=== PATIENT | male | born 1940 | race Hispanic/Latino ===

== ENCOUNTER 2017-04-02 14:21 | Emergency (ER) | payer MEDICARE ==
[2017-04-02 15:06] LABS: Basophils % (Auto) 0.4 % (0.0-1.8); Eosinophils % (Auto) 0.6 % (0.0-4.3); Hematocrit 46.3 % (35.5-45.6); Hemoglobin 15.2 gm/dl (11.8-15.2); Mean Corpuscular HGB Conc 33 % (32-34); Mean Corpuscular Hemoglobin 31 pg (28-32); Mean Corpuscular Volume 93 fl (84-94); Platelet Count 153 K/mm3 (140-440); Red Blood Count 4.96 M/mm3 (3.65-5.03); Red Cell Distribution Width 14.4 % (13.2-15.2); White Blood Count 7.5 K/mm3 (4.5-11.0)
[2017-04-02 15:23] LABS: BUN/Creatinine Ratio 21.42; Calcium 9.1 mg/dL (8.4-10.2); Chloride 89.3 mmol/L (98-107); Potassium 4.7 mmol/L (3.6-5.0)
[2017-04-02 16:21] LABS: Bilirubin,Urine NEG (Negative); Blood,Urine SM (Negative); Ketones,Urine TR mg/dL (Negative); Leukocyte Esterase,Urine NEG (Negative); Mucus,Urine FEW /HPF; Nitrite,Urine NEG (Negative); Protein,Urine <15 mg/dL mg/dL (Negative); Urobilinogen,Urine < 2.0 mg/dL (<2.0)
[2017-04-02] MEDS ORDERED: NACL 0.9% 1000 ML 1,000 ML ONE (19:54)
[2017-04-02] MEDS ORDERED: NACL 0.9% 1000 ML 1,000 ML IV ONE ×2 (19:55→21:04)
--- NOTE | 2017-04-02 21:07 | Emergency Department Report ---
HPI - General Chief Complaint: Hyperglycemia Time Seen by Provider: 04/02/17 20:17 - HPI HPI: This is a 76-year-old male who presents to the emergency department, sent in by his PCP Dr. Herrera, with the complaint of elevated blood sugar. The patient went to follow up with him secondary to some leg cramping and some occasional falling that he has been having. He is a [id number] diabetic and may checked his blood sugar in the office and was found to be greater than 500. He is on metformin and another medication, of which she cannot read the name, but says that he is not always compliant with the medication as his , who , usually was managing his medications. He denies any chest pain, shortness of breath, headache, vision change, slurred speech. He does admit to increased thirst. He denies any dysuria but says that he has a chronic history of urinary incontinence. ED Past Medical Hx - Past Medical History Previous Medical History?: Yes Hx Diabetes: Yes - Social History Smoking Status: Never Smoker Substance Use Type: None ED Review of Systems ROS: Stated complaint: HIGH BLOOD SUGAR Other details as noted in HPI Comment: All other systems reviewed and negative Constitutional: denies: chills, fever Eyes: denies: eye pain, eye discharge, vision change ENT: denies: ear pain, throat pain Respiratory: denies: cough, shortness of breath, wheezing Cardiovascular: denies: chest pain, palpitations Endocrine: increased thirst, increased urine Gastrointestinal: denies: abdominal pain, vomiting Genitourinary: frequency. denies: dysuria Musculoskeletal: denies: back pain, joint swelling, arthralgia Skin: denies: rash, lesions Neurological: denies: headache, numbness, confusion Physical Exam - Physical Exam Vital Signs: Vital Signs 04/02/17 04/02/17 04/02/17 14:39 19:51 20:00 Temperature 97 F L Pulse Rate 80 81 81 Respiratory 20 20 12 Rate Blood Pressure 149/82 164/107 O2 Sat by Pulse 99 97 100 Oximetry Physical Exam: GENERAL: The patient is well-developed well-nourished. HENT: Normocephalic. Atraumatic. Patient has moist mucous membranes. EYES: Extraocular motions are intact. Pupils equal reactive to light bilaterally. NECK: Supple. Trachea is midline. CHEST/LUNGS: Clear to auscultation. There is no respiratory distress noted. HEART/CARDIOVASCULAR: Regular. There is no tachycardia. There is no gallop rub or murmur. ABDOMEN: Abdomen is soft, nontender. Patient has normal bowel sounds. There is no abdominal distention. SKIN: Skin is warm and dry. NEURO: The patient is awake, alert, and oriented. The patient is cooperative. The patient has no focal neurologic deficits. The patient has normal speech. MUSCULOSKELETAL: There is no tenderness or deformity. There is no limitation range of motion. There is no evidence of acute injury. ED Course Vital Signs 04/02/17 04/02/17 04/02/17 14:39 19:51 20:00 Temperature 97 F L Pulse Rate 80 81 81 Respiratory 20 20 12 Rate Blood Pressure 149/82 164/107 O2 Sat by Pulse 99 97 100 Oximetry ED Medical Decision Making - Lab Data Result diagrams: 04/02/17 14:50 04/02/17 14:50 - Medical Decision Making 76-year-old male presents to the emergency department from PCP office with hyperglycemia. Blood sugar is about 700. He received about 1.5 L of IV fluid and 2 different doses of insulin and his blood sugar is down to about 270. He does not appear to be in diabetic ketoacidosis as there is no venous acidosis. There is a slight elevation in the anion gap but most likely secondary to the level of his hyperglycemia. However he does not have any significant sequela other than some increased thirst and it is possible it is part of the reason he has had some recurrent falls. However currently he is asymptomatic. The patient admits that he has been noncompliant with the pills and that his PCP has been trying to switch him to insulin. Once the blood sugar got down to a more reasonable level he is asking for discharge home. I think this is reasonable as he has good follow-up with primary care. He will start taking his diabetes medications compliantly and we discussed some dietary and/or lifestyle changes to make as well. He will keep a blood sugar log. He will return to the ER if any worsening of symptoms or any acute distress. - Differential Diagnosis DKA, HHNK, UTI Critical Care Time: No Critical care attestation.: If time is entered above; I have spent that time in minutes in the direct care of this critically ill patient, excluding procedure time. ED Disposition Clinical Impression: Hyperglycemia, Renal insufficiency Disposition: DC- TO HOME OR SELFCARE Is pt being admited?: No Condition: Stable Instructions: Urinary Incontinence (ED), Diabetic Hyperglycemia (ED) Additional Instructions: Please follow-up with your primary care physician in the next few days. I have given you a referral for a local urologist, Dr. Larsen, in case she would like to follow up regarding your issues with incontinence (leaky urine). Please try and stay away from foods that are high in sugar, starches and carbohydrates. Take your diabetes medications as previously prescribed. Keep a blood sugar log. Return to the emergency Department with any worsening of your symptoms or any acute distress. Referrals: EZIO FOURNIER MD [Primary Care Provider] - 3-5 Days HJOANA LARSEN MD [Staff Physician] - 3-5 Days Time of Disposition: 22:20
[2017-04-02] MEDS ORDERED: NORCO 5/325 PO ONE (21:30)
[2017-04-02 22:37] VITALS: BP 114/62
== END 2017-04-02 22:36 | disposition home or self-care (01) ==
LOC: ED 14:21
DX: E11.65 Type 2 diabetes mellitus with hyperglycemia (principal); N28.9 Disorder of kidney and ureter, unspecified
CPT/HCPCS: 36415; 80048; 81001; 82805; 82962; 83930; 85025; 96361; 96374; 96376; 99284; J7030; J1815

== ENCOUNTER 2017-04-07 14:19 | Emergency (ER) | payer MEDICARE ==
--- NOTE | 2017-04-07 14:48 | Emergency Department Report ---
Stated Complaint: HIGH SUGAR Time Seen by Provider: 04/07/17 14:46 - HPI History of Present Illness: PT states he was seen a few days ago for same. PT states he did not want to stay in the hospital. PT states he had some recent medication changes. PT states his bg has been high. - ROS Review of Systems: + urinary frequency -n/v - Exam Physical Exam: obese male no acute distress gcs 15 MSE screening note: Focused history and physical exam performed. Due to findings the following was ordered: labs ED Disposition for MSE Condition: Stable
[2017-04-07 15:25] LABS: Bilirubin,Urine NEG (Negative); Blood,Urine NEG (Negative); Ketones,Urine NEG (Negative); Leukocyte Esterase,Urine SM (Negative); Mucus,Urine FEW /HPF; Nitrite,Urine NEG (Negative); Protein,Urine <15 mg/dL mg/dL (Negative); Urobilinogen,Urine < 2.0 mg/dL (<2.0)
[2017-04-07 16:00] LABS: Basophils % (Auto) 0.3 % (0.0-1.8); Eosinophils % (Auto) 0.8 % (0.0-4.3); Hematocrit 43.7 % (35.5-45.6); Hemoglobin 14.3 gm/dl (11.8-15.2); Mean Corpuscular HGB Conc 33 % (32-34); Mean Corpuscular Hemoglobin 31 pg (28-32); Mean Corpuscular Volume 93 fl (84-94); Platelet Count 143 K/mm3 (140-440); Red Blood Count 4.71 M/mm3 (3.65-5.03); Red Cell Distribution Width 14.3 % (13.2-15.2); White Blood Count 6.5 K/mm3 (4.5-11.0)
[2017-04-07 16:10] LABS: Calcium 8.8 mg/dL (8.4-10.2); Chloride 97.3 mmol/L (98-107); Potassium 5.3 mmol/L (3.6-5.0)
[2017-04-07] MEDS ORDERED: NACL 0.9% 1000 ML 1,000 ML IV ONE (18:38)
--- NOTE | 2017-04-07 18:43 | Emergency Department Report ---
ED General Adult HPI - General Chief complaint: Hyperglycemia Stated complaint: HIGH SUGAR Time Seen by Provider: 04/07/17 14:46 Source: patient Mode of arrival: Ambulatory Limitations: No Limitations - History of Present Illness Initial comments: The patient is 76 years old male history of diabetes came today with high blood sugar. Patient stated that he has been using his insulin as prescribed by his primary care physician but his blood sugar is reading high. Patient stated that he has been using the bathroom for urination more frequent than before. Denied any fever or nausea or vomiting or diarrhea no chest pain abdominal pain no other complaints. -: Gradual - Related Data Home Medications Medication Instructions Recorded Confirmed Last Taken Insulin Aspart Prot/Aspart(Nf) 10 units SQ QAC 04/07/17 04/07/17 Unknown [Novolog Mix 70/30] Insulin Glargine [Lantus] 18 unit SUB-Q QHS 04/07/17 04/07/17 Unknown Allergies Allergy/AdvReac Type Severity Reaction Status Date / Time No Known Allergies Allergy Unverified 04/02/17 14:43 ED Review of Systems ROS: Stated complaint: HIGH SUGAR Other details as noted in HPI Comment: All other systems reviewed and negative Constitutional: denies: chills, fever Respiratory: denies: cough, shortness of breath, SOB with exertion Cardiovascular: denies: chest pain, palpitations Gastrointestinal: denies: abdominal pain, nausea, vomiting, diarrhea Genitourinary: urgency, frequency Neurological: denies: headache ED Past Medical Hx - Past Medical History Previous Medical History?: Yes Hx Diabetes: Yes - Surgical History Past Surgical History?: No - Social History Smoking Status: Never Smoker Substance Use Type: None - Medications Home Medications: Home Medications Medication Instructions Recorded Confirmed Last Taken Type Insulin Aspart Prot/Aspart(Nf) 10 units SQ QAC 04/07/17 04/07/17 Unknown History [Novolog Mix 70/30] Insulin Glargine [Lantus] 18 unit SUB-Q QHS 04/07/17 04/07/17 Unknown History ED Physical Exam - General Limitations: No Limitations General appearance: alert, in no apparent distress - Head Head exam: Present: atraumatic, normocephalic - Eye Eye exam: Present: normal appearance - ENT ENT exam: Present: normal exam - Neck Neck exam: Present: normal inspection - Respiratory Respiratory exam: Present: normal lung sounds bilaterally. Absent: respiratory distress, wheezes, rales, rhonchi, stridor, chest wall tenderness, accessory muscle use, decreased breath sounds - Cardiovascular Cardiovascular Exam: Present: regular rate, normal rhythm, normal heart sounds - GI/Abdominal GI/Abdominal exam: Present: soft, normal bowel sounds. Absent: distended, tenderness, guarding, rebound, rigid, organomegaly, mass, bruit, pulsatile mass - Extremities Exam Extremities exam: Present: normal inspection. Absent: pedal edema - Back Exam Back exam: Present: normal inspection, full ROM. Absent: tenderness, CVA tenderness (R), CVA tenderness (L) - Neurological Exam Neurological exam: Present: alert, oriented X3, CN II-XII intact, normal gait - Skin Skin exam: Present: warm, intact, normal color ED Course Vital Signs 04/07/17 04/07/17 04/07/17 14:41 14:42 18:00 Temperature 98.7 F 98.7 F 98.3 F Pulse Rate 85 85 70 Respiratory 22 13 Rate Blood Pressure 130/84 130/84 Blood Pressure 185/90 [Left] O2 Sat by Pulse 96 96 98 Oximetry 04/07/17 18:45 Temperature Pulse Rate Respiratory Rate Blood Pressure Blood Pressure [Left] O2 Sat by Pulse 97 Oximetry - Reevaluation(s) Reevaluation #1: 04/07/17 20:48 Patient stated that he is feeling better special and now is 250 Reevaluation #2: 04/07/17 20:[address] Hallman a primary care doctor inform allowed the patient advised to give the patient insulin injection teaching in the ER, I will let the nurse know. ED Medical Decision Making - Lab Data Result diagrams: 04/07/17 15:24 04/07/17 15:24 - Medical Decision Making Patient is sitting in his bed chatting with his friends and family no acute distress. He will be discharged home to follow-up with his primary care physician for insulin adjustment Critical care attestation.: If time is entered above; I have spent that time in minutes in the direct care of this critically ill patient, excluding procedure time. ED Disposition Clinical Impression: Hyperglycemia, UTI (urinary tract infection) Disposition: DC-01 TO HOME OR SELFCARE Is pt being admited?: No Condition: Stable Referrals: PRIMARY CARE, [Primary Care Provider] - 3-5 Days
[2017-04-07 22:01] VITALS: BP 111/56
== END 2017-04-07 22:01 | disposition home or self-care (01) ==
LOC: ED 14:19
DX: E11.65 Type 2 diabetes mellitus with hyperglycemia (principal); N39.0 Urinary tract infection, site not specified
CPT/HCPCS: 36415; 80048; 81001; 82805; 82962; 85025; 96361; 96374; 99283; J7030; J1815

== ENCOUNTER 2017-07-20 09:52 | Outpatient (CLI) | payer MEDICARE ==
--- NOTE | 2017-07-20 11:52 | XRay Report ---
CERVICAL SPINE, 5 VIEWS History: Neck pain. Findings: Mild osteopenia is noted. There is moderate multilevel degenerative disc disease which is most pronounced at C5-6 and C6-7. Mild diffuse facet arthropathy. No evidence for displaced fracture, malalignment or bone lesion. The oblique images suggest moderate left neural foraminal narrowing at C5-6 and C6-7. Impression: Osteopenia. Cervical spondylosis as described above. No acute process is noted.
--- NOTE | 2017-07-31 14:27 | Vascular Lab Report ---
CAROTID DUPLEX STUDY: RIGHT PSVEDV CCA PROX:[id number] CCA DIST:[id number] ICA PROX:7518 ICA MID:[id number] ICA DIST:6022 ECA: 93 VERT: 47 8 LEFT PSVEDV CCA PROX:[id number] CCA DIST:8923 ICA PROX:7917 ICA MID:6426 ICA DIST:7626 ECA: 81 VERT: 45 15 REASON FOR EXAM: Carotid bruit. COMMENTS ON THE RIGHT: Doppler frequency analysis is consistent with 16 to 49 percent diameter reduction of the internal carotid artery. Minimal amount of plaque is seen. The common carotid artery is patent. The external carotid artery is patent. The vertebral artery has antegrade flow. COMMENTS ON THE LEFT: Doppler frequency analysis is consistent with 16 to 49 percent diameter reduction of the internal carotid artery. Minimal amount of plaque is seen. The common carotid artery is patent. The external carotid artery is patent. The vertebral artery has antegrade flow. IMPRESSION: Less than 50% diameter reduction in the internal carotid arteries bilaterally.
== END 2017-07-20 09:53 | disposition home or self-care (01) ==
LOC: VAS 09:52
PROVIDERS: ATTEND Internal Medicine
DX: M47.892 Other spondylosis, cervical region (principal); M50.322 Other cervical disc degeneration at C5-C6 level; M50.323 Other cervical disc degeneration at C6-C7 level; I65.23 Occlusion and stenosis of bilateral carotid arteries; M85.88 Other specified disorders of bone density and structure, other site; R09.89 Other specified symptoms and signs involving the circulatory and respiratory systems
CPT/HCPCS: 72050; 93880

== ENCOUNTER 2018-11-14 14:20 | Inpatient (IN) | payer MEDICARE ==
[2018-11-14] MEDS ORDERED: ATROVENT IH ONE (14:37)
[2018-11-14] MEDS ORDERED: PROVENTIL IH ONE (14:37)
--- NOTE | 2018-11-14 14:37 | Emergency Department Report ---
Chief Complaint: Upper Respiratory Infection Stated Complaint: PNEMONIA Time Seen by Provider: 11/14/18 14:34 - HPI History of Present Illness: pt presents with a cough that began a week ago +SOB +wheezing no fever PMHx HTN former smoker, quit 20 years ago send to the main for further evaluation and management MSE screening note: Focused history and physical exam performed. Due to findings the following was ordered: CXR, labs, neb tx
[2018-11-14] MEDS ORDERED: MAGNESIUM SULFATE 2GM/50ML 2 GM/50 ML BAG IV ONE (14:52)
[2018-11-14] MEDS ORDERED: MAXIPIME/NS 2 GM/100 ML 2 GM/100 ML BAG IV ONE (14:52)
[2018-11-14] MEDS ORDERED: DUONEB *Not for PRN Use IH ONE (14:54)
--- NOTE | 2018-11-14 14:54 | Emergency Department Report ---
ED Shortness of Breath HPI - General Chief Complaint: Upper Respiratory Infection Stated Complaint: PNEMONIA Time Seen by Provider: 11/14/18 14:28 Source: patient Mode of arrival: Ambulatory Limitations: No Limitations - History of Present Illness Initial Comments: Patient is a 78-year-old mellitus emergency room with complaints of chest pain and shortness of breath. Patient states the symptoms started 3 days ago. Patient states that his girlfriend has pneumonia is in another hospital for IV therapy. Patient states his symptoms are worsening. Patient states he's shortness of breath is worse with exertion and better with rest. Patient states that he is wheezing and coughing. Patient states that he is having a yellowish sputum production. Patient states that his chest pain is better with rest and worse with coughing and deep breath. Patient denies fever and chills. He states his chest pain is 8 out of 10. MD Complaint: shortness of breath, chest pain, pain with inspiration -: Sudden Severity: severe Pain Scale: 8 Quality: throbbing Consistency: constant Improves With: rest Worsens With: exertion Context: recent URI Associated Symptoms: chest pain, pain with inspiration, cough, sputum production Treatments Prior to Arrival: none - Related Data Home Oxygen Therapy: No Home Medications Medication Instructions Recorded Confirmed Last Taken Insulin Aspart Prot/Aspart(Nf) 10 units SQ QAC 04/07/17 04/07/17 Unknown [Novolog Mix 70/30] Insulin Glargine [Lantus] 18 unit SUB-Q QHS 04/07/17 04/07/17 Unknown Previous Rx's Medication Instructions Recorded Last Taken Type Ciprofloxacin HCl [Ciprofloxacin 500 mg PO Q12H #20 tab 04/07/17 Unknown Rx TAB] Allergies Allergy/AdvReac Type Severity Reaction Status Date / Time No Known Allergies Allergy Unverified 04/02/17 14:43 ED Review of Systems ROS: Stated complaint: PNEMONIA Other details as noted in HPI Constitutional: denies: chills, fever Eyes: denies: eye pain, eye discharge, vision change ENT: denies: ear pain, throat pain Respiratory: cough, shortness of breath, SOB with exertion, SOB at rest, wheezing Cardiovascular: chest pain. denies: palpitations Endocrine: no symptoms reported Gastrointestinal: denies: abdominal pain, nausea, diarrhea Genitourinary: denies: urgency, dysuria Musculoskeletal: denies: back pain, joint swelling, arthralgia Skin: denies: rash, lesions Neurological: denies: headache, weakness, paresthesias Psychiatric: denies: anxiety, depression Hematological/Lymphatic: denies: easy bleeding, easy bruising ED Past Medical Hx - Past Medical History Previous Medical History?: Yes Hx Hypertension: Yes Hx Diabetes: Yes Additional medical history: Prostate disease. - Surgical History Past Surgical History?: No - Family History Family history: no significant - Social History Smoking Status: Former Smoker Substance Use Type: Prescribed - Medications Home Medications: Home Medications Medication Instructions Recorded Confirmed Last Taken Type Ciprofloxacin HCl [Ciprofloxacin 500 mg PO Q12H #20 tab 04/07/17 Unknown Rx TAB] Insulin Aspart Prot/Aspart(Nf) 10 units SQ QAC 04/07/17 04/07/17 Unknown History [Novolog Mix 70/30] Insulin Glargine [Lantus] 18 unit SUB-Q QHS 04/07/17 04/07/17 Unknown History ED Physical Exam - General Limitations: No Limitations General appearance: alert, in distress - Head Head exam: Present: atraumatic, normocephalic - Eye Eye exam: Present: normal appearance - ENT ENT exam: Present: mucous membranes moist - Neck Neck exam: Present: normal inspection - Respiratory Respiratory exam: Present: respiratory distress, wheezes - Cardiovascular Cardiovascular Exam: Present: regular rate, normal rhythm. Absent: systolic murmur, diastolic murmur, rubs, gallop - GI/Abdominal GI/Abdominal exam: Present: soft, normal bowel sounds. Absent: distended, tenderness, guarding - Rectal Rectal exam: Present: deferred - Extremities Exam Extremities exam: Present: normal inspection - Back Exam Back exam: Present: normal inspection - Neurological Exam Neurological exam: Present: alert, oriented X3 - Psychiatric Psychiatric exam: Present: normal affect, normal mood - Skin Skin exam: Present: warm, dry, intact, normal color. Absent: rash ED Course Vital Signs 11/14/18 11/14/18 11/14/18 14:35 14:45 15:01 Temperature 98.1 F Pulse Rate 88 84 Pulse Rate [ Bilateral] Respiratory 24 13 Rate Respiratory Rate [Bilateral ] Blood Pressure 185/97 106/57 O2 Sat by Pulse 93 94 92 Oximetry 11/14/18 11/14/18 11/14/18 15:04 15:15 15:26 Temperature Pulse Rate 93 H Pulse Rate [ 92 H Bilateral] Respiratory 16 26 H Rate Respiratory 26 H Rate [Bilateral ] Blood Pressure 112/61 O2 Sat by Pulse 92 92 Oximetry 11/14/18 11/14/18 15:31 15:35 Temperature Pulse Rate 114 H Pulse Rate [ 118 H Bilateral] Respiratory 15 Rate Respiratory 24 Rate [Bilateral ] Blood Pressure 124/52 O2 Sat by Pulse 92 Oximetry - Reevaluation(s) Reevaluation #1: Initial evaluation done. Patient found to be hypoxic. Patient was placed on oxygen and given breathing treatment. Patient will also be given antibiotics and steroids and a magnesium run. 11/14/18 15:28 On oxygen and oxygenation is better. Patient states he feels the same. Lung sounds are clear 11/14/18 15:58 Patient resting comfortably. Patient on oxygen. Patient's lung sounds are clear. CT is pending. 11/14/18 17:21 - Consultations Consultation #1: Hospitalist consulted for admission. Hospitalist to admit patient and assume care of patient. Bridge orders placed 11/14/18 17:39 ED Medical Decision Making - Lab Data Result diagrams: 11/14/18 14:53 11/14/18 14:52 - EKG Data -: EKG Interpreted by Fl EKG shows normal: sinus rhythm, axis, intervals, QRS complexes, ST-T waves Rate: normal - Radiology Data Radiology results: report reviewed PROCEDURE: XR CHEST 1V AP TECHNIQUE: Single view HISTORY: cough, SOB, wheezing COMPARISONS: None FINDINGS: Trachea midline. Atherosclerotic calcification in aorta. No pneumothorax. No effusion. Mild generalized interstitial prominence. No comparison to establish baseline. Lungs otherwise clear No acute bony abnormality IMPRESSION: Mild interstitial prominence. No comparison to establish baseline. Differential includes chronic nonspecific interstitial change, mild pulmonary congestion or infectious proce ss. PROCEDURE: CT ANGIO CHEST TECHNIQUE: Computerized tomographic angiography of the chest was performed after the IV injection of iodinated nonionic contrast including image processing. The image data was postprocessed using 2-dimensional multiplanar reformatted (MPR) and 3-dimensional (MIP and/or volume rendered) techniques. Automated exposure control, adjustment of mA and/or kV according to patient size, or iterative reconstruction dose optimization techniques were utilized. CT DOSE LENGTH PRODUCT: 1010 mGycm HISTORY: sob. hypoxia COMPARISONS: None . FINDINGS: Heart and pericardium: Coronary calcifications noted. Thoracic aorta: Normal. Pulmonary vasculature: Respiratory motion artifact limits full evaluation. No evidence for acute pulmonary embolus to the proximal segmental pulmonary level. Lymph nodes: No enlarged thoracic lymph nodes. Lungs: Centrilobular nodular opacities seen in the left lower lobe may represent mild pneumonia. Pleural space: No effusion, thickening, or pneumothorax. Musculoskeletal structures: No significant abnormality. Upper abdominal structures: No significant abnormality. IMPRESSION: Respiratory motion artifact limits full evaluation. No evidence for acute pulmonary embolus to the proximal segmental pulmonary level. Centrilobular nodular opacities seen in the left lower lobe may represent mild pneumonia. Coronary calcifications. - Medical Decision Making Patient is 78-year-old male external complaints shortness of breath, cough and wheezing. Patient found to be hypoxic. Patient given Solu-Medrol, mag he seems rate and breathing treatments. Patient has multiple abnormalities found. Patient has pulmonary edema and interstitial findings on chest x-ray. Patient had a CTA done of the chest shows left lower lobe pneumonia. Labs and unremarkable. - Differential Diagnosis shortness of breath. Chest pain. Cough. Bronchitis. Pneumonia. Critical Care Time: Yes Critical care attestation.: If time is entered above; I have spent that time in minutes in the direct care of this critically ill patient, excluding procedure time. Critical Care Time: 45 minutes ED Disposition Clinical Impression: SOB (shortness of breath), Hypoxia, Bronchitis Chest pain Qualifiers: Chest pain type: unspecified Qualified Code(s): R07.9 - Chest pain, unspecified Pulmonary edema Qualifiers: Chronicity: acute Qualified Code(s): J81.0 - Acute pulmonary edema Left lower lobe pneumonia Qualifiers: Pneumonia type: due to unspecified organism Qualified Code(s): J18.1 - Lobar pneumonia, unspecified organism Disposition: OP ADMIT IP TO THIS HOSP Is pt being admited?: Yes Does the pt Need Aspirin: No Condition: Critical Instructions: Chronic Bronchitis (ED) Time of Disposition: 17:33
[2018-11-14] MEDS ORDERED: SOLU-Medrol IV ONE (15:10)
[2018-11-14] MEDS ORDERED: SOLU-Medrol ONE (15:13)
[2018-11-14 15:24] LABS: Basophils % (Auto) 0.3 % (0.0-1.8); Eosinophils # (Auto) 0.1 K/mm3 (0.0-0.4); Eosinophils % (Auto) 1.5 % (0.0-4.3); Hematocrit 43.8 % (35.5-45.6); Hemoglobin 14.6 gm/dl (11.8-15.2); Lymphocytes # (Auto) 1.4 K/mm3 (1.2-5.4); Lymphocytes % (Auto) 25.7 % (13.4-35.0); Mean Corpuscular HGB Conc 33 % (32-34); Mean Corpuscular Volume 93 fl (84-94); Monocytes # (Auto) 0.8 K/mm3 (0.0-0.8); Monocytes % (Auto) 14.9 % (0.0-7.3); Red Blood Count 4.73 M/mm3 (3.65-5.03); Red Cell Distribution Width 14.8 % (13.2-15.2)
[2018-11-14 15:30] LABS: Platelet Count 98 K/mm3 (140-440)
--- NOTE | 2018-11-14 15:35 | XRay Report ---
PROCEDURE: XR CHEST 1V AP TECHNIQUE: Single view HISTORY: cough, SOB, wheezing COMPARISONS: None FINDINGS: Trachea midline. Atherosclerotic calcification in aorta. No pneumothorax. No effusion. Mild generalized interstitial prominence. No comparison to establish baseline. Lungs otherwise clear No acute bony abnormality IMPRESSION: Mild interstitial prominence. No comparison to establish baseline. Differential includes chronic nons pecific interstitial change, mild pulmonary congestion or infectious process. This document is electronically signed by Robert Sheppard MD., Nov 14 2018 03:34:04 PM ET
[2018-11-14 15:48] LABS: Calcium 9.2 mg/dL (8.4-10.2)
--- NOTE | 2018-11-14 17:29 | Cat Scan Report ---
PROCEDURE: CT ANGIO CHEST TECHNIQUE: Computerized tomographic angiography of the chest was performed after the IV injection of iodinated nonionic contrast including image processing. The image data was postprocessed using 2-di mensional multiplanar reformatted (MPR) and 3-dimensional (MIP and/or volume rendered) techniques. Au tomated exposure control, adjustment of mA and/or kV according to patient size, or iterative reconstr uction dose optimization techniques were utilized. CT DOSE LENGTH PRODUCT: 1010 mGycm HISTORY: sob. hypoxia COMPARISONS: None . FINDINGS: Heart and pericardium: Coronary calcifications noted. Thoracic aorta: Normal. Pulmonary vasculature: Respiratory motion artifact limits full evaluation. No evidence for acute pulm onary embolus to the proximal segmental pulmonary level. Lymph nodes: No enlarged thoracic lymph nodes. Lungs: Centrilobular nodular opacities seen in the left lower lobe may represent mild pneumonia. Pleural space: No effusion, thickening, or pneumothorax. Musculoskeletal structures: No significant abnormality. Upper abdominal structures: No significant abnormality. IMPRESSION: Respiratory motion artifact limits full evaluation. No evidence for acute pulmonary embo josiah to the proximal segmental pulmonary level. Centrilobular nodular opacities seen in the left lower lobe may represent mild pneumonia. Coronary calcifications. This document is electronically signed by Crystal Mendoza MD., Nov 14 2018 05:26:54 PM ET
--- NOTE | 2018-11-14 19:10 | History and Physical Report ---
History of Present Illness Date of examination: 11/14/18 Date of admission: 11/14/18 17:41 Chief complaint: Cough and shortness of breath for 5 days History of present illness: 78-year-old male with history of hypertension and insulin-dependent diabetes comes in for cough and shortness of breath for last 5 days. Patient has been coughing yellow phlegm for the last 1 day. Patient also has been having difficulty breathing while lying down. Had chills today. Patient also wheezing. Some chest pain secondary to coughing. Shortness of breath with min imal exertion which is new. No history of CHF. No history of pulmonary embolism. No recent travel. Past Medical History Previous Medical History?: Yes Hypertension: Yes Diabetes: Yes Additional medical history: Prostate disease. Surgical History Past Surgical History?: No Family History Family history: no significant Social History Smoking Status: Former Smoker Substance Use Type: Prescribed Review of Systems ROS: Stated complaint: PNEMONIA Other details as noted in HPI Constitutional: denies: chills, fever Eyes: denies: eye pain, eye discharge, vision change ENT: denies: ear pain, throat pain Respiratory: cough, shortness of breath, SOB with exertion, SOB at rest, wheezing , cough productive of yellow sputum Cardiovascular: chest pain. denies: palpitations Endocrine: no symptoms reported Gastrointestinal: denies: abdominal pain, nausea, diarrhea Genitourinary: denies: urgency, dysuria Musculoskeletal: denies: back pain, joint swelling, arthralgia Skin: denies: rash, lesions Neurological: denies: headache, weakness, paresthesias Psychiatric: denies: anxiety, depression Hematological/Lymphatic: denies: easy bleeding, easy bruising Medications and Allergies Allergies Allergy/AdvReac Type Severity Reaction Status Date / Time No Known Allergies Allergy Unverified 04/02/17 14:43 Home Medications Medication Instructions Recorded Confirmed Last Taken Type Metformin HCl 1,000 mg PO 11/14/18 11/14/18 Unknown History Metoprolol 25 11/14/18 Unknown History Tamsulosin [Flomax] 11/14/18 Unknown History Tresiba Flextouch U-100 11/14/18 Unknown History Exam - Constitutional Vitals: Temp Pulse Resp BP Pulse Ox 98.1 F 118 H 24 124/52 92 11/14/18 14:35 11/14/18 15:35 11/14/18 15:35 11/14/18 15:31 11/14/18 15:31 General appearance: Present: mild distress, well-nourished - EENT Eyes: Present: PERRL ENT: hearing intact, clear oral mucosa - Neck Neck: Present: supple, normal ROM - Respiratory Respiratory effort: normal Respiratory: bilateral: CTA, rhonchi, wheezing - Cardiovascular Heart rate: 88 Rhythm: regular Heart Sounds: Present: S1 & S2. Absent: rub, click - Extremities Extremities: no ischemia, pulses intact, pulses symmetrical, No edema Peripheral Pulses: within normal limits - Abdominal General gastrointestinal: Present: soft, non-tender, non-distended, normal bowel sounds Male genitourinary: Present: normal - Rectal Rectal Exam: deferred - Integumentary Integumentary: Present: clear, warm, dry - Musculoskeletal Musculoskeletal: gait normal, strength equal bilaterally - Psychiatric Psychiatric: appropriate mood/affect, intact judgment & insight - Neurologic Neurologic: CNII-XII intact, moves all extremities - Allied Health Allied health notes reviewed: nursing, case management Results - Labs CBC & Chem 7: 11/14/18 14:53 11/14/18 14:52 Labs: Laboratory Last Values WBC 5.4 K/mm3 (4.5-11.0) 11/14/18 14:53 RBC 4.73 M/mm3 (3.65-5.03) 11/14/18 14:53 Hgb 14.6 gm/dl (11.8-15.2) 11/14/18 14:53 Hct 43.8 % (35.5-45.6) 11/14/18 14:53 MCV 93 fl (84-94) 11/14/18 14:53 MCH 31 pg (28-32) 11/14/18 14:53 MCHC 33 % (32-34) 11/14/18 14:53 RDW 14.8 % (13.2-15.2) 11/14/18 14:53 Plt Count 98 K/mm3 (140-440) L 11/14/18 14:53 Lymph % (Auto) 25.7 % (13.4-35.0) 11/14/18 14:53 [place] % (Auto) 14.9 % (0.0-7.3) H 11/14/18 14:53 Eos % (Auto) 1.5 % (0.0-4.3) 11/14/18 14:53 Baso % (Auto) 0.3 % (0.0-1.8) 11/14/18 14:53 Lymph # 1.4 K/mm3 (1.2-5.4) 11/14/18 14:53 [place] # 0.8 K/mm3 (0.0-0.8) 11/14/18 14:53 Eos # 0.1 K/mm3 (0.0-0.4) 11/14/18 14:53 Baso # 0.0 K/mm3 (0.0-0.1) 11/14/18 14:53 Seg Neutrophils % 57.6 % (40.0-70.0) 11/14/18 14:53 Seg Neutrophils # 3.1 K/mm3 (1.8-7.7) 11/14/18 14:53 Sodium 145 mmol/L (137-145) 11/14/18 14:52 Potassium 4.5 mmol/L (3.6-5.0) 11/14/18 14:52 Chloride 105.0 mmol/L (98-107) 11/14/18 14:52 Carbon Dioxide 25 mmol/L (22-30) 11/14/18 14:52 20 mmol/L 11/14/18 14:52 BUN 23 mg/dL (9-20) H 11/14/18 14:52 1.3 mg/dL (0.8-1.5) 11/14/18 14:52 Estimated GFR 54 ml/min 11/14/18 14:52 18 % 11/14/18 14:52 Glucose 127 mg/dL (75-100) H 11/14/18 14:52 Lactic Acid 1.20 mmol/L (0.7-2.0) 11/14/18 14:55 Calcium 9.2 mg/dL (8.4-10.2) 11/14/18 14:52 198 units/L (55-170) H 11/14/18 14:57 CK-MB (CK-2) 3.0 ng/mL (0.0-4.0) 11/14/18 14:57 CK-MB (CK-2) Rel Index 1.5 (0-4) 11/14/18 14:57 < 0.010 ng/mL (0.00-0.029) 11/14/18 14:57 NT-Pro-B Natriuret Pep 288.6 pg/mL (0-900) 11/14/18 14:52 Short CBC 11/14/18 Range/Units 14:53 WBC 5.4 (4.5-11.0) K/mm3 Hgb 14.6 (11.8-15.2) gm/dl Hct 43.8 (35.5-45.6) % Plt Count 98 L (140-440) K/mm3 BMP 11/14/18 14:52 Sodium 145 Potassium 4.5 Chloride 105.0 Carbon Dioxide 25 BUN 23 H Creatinine 1.3 Glucose 127 H Calcium 9.2 Cardiac Enzymes 11/14/18 Range/Units 14:57 Total Creatine Kinase 198 H (55-170) units/L CK-MB (CK-2) 3.0 (0.0-4.0) ng/mL Troponin T < 0.010 (0.00-0.029) ng/mL - Imaging and Cardiology EKG: report reviewed (normal sinus rhythm heart rate of 90 89/m no acute ST-T w ave changes) Chest x-ray: report reviewed Imaging and Cardiology: Chest x-ray IMPRESSION: Mild interstitial prominence. No comparison to establish baseline. Differential includes chronic nonspecific interstitial change, mild pulmonary congestion or infectious process. CTA chest IMPRESSION: Respiratory motion artifact limits full evaluation. No evidence for acute pulmonary embolus to the proximal segmental pulmonary level. Centrilobular nodular opacities seen in the left lower lobe may represent mild pneumonia. Coronary calcifications. Assessment and Plan Advance Directives: Yes (full code) VTE prophylaxis?: Chemical Plan of care discussed with patient/family: Yes - Patient Problems (1) Acute respiratory failure with hypoxia Current Visit: Yes Status: Acute Plan to address problem: Patient's oxygen saturations were low at the time of admission Oxygen saturations were high 80s 2 L nasal cannula oxygen (2) Left lower lobe pneumonia Current Visit: Yes Status: Acute Qualifiers: Pneumonia type: due to unspecified organism Qualified Code(s): J18.1 - Lobar pneumonia, unspecified organism Plan to address problem: Patient initiated on IV Zithromax and IV Rocephin Duonebs 4 times a day and albuterol when necessary Low dose steroids -IV Solumedrol 20 mg q 12h were added (3) CHF (congestive heart failure) Current Visit: Yes Status: Acute Qualifiers: Heart failure chronicity: unspecified Plan to address problem: Unlikely BNP is low We will get echocardiogram for ejection fraction and valvular function (4) Hypertension Current Visit: Yes Status: Chronic Qualifiers: Hypertension type: essential hypertension Qualified Code(s): I10 - Essential (primary) hypertension Plan to address problem: Continue antihypertensives (5) Insulin dependent diabetes mellitus Current Visit: Yes Status: Chronic Plan to address problem: Check hemoglobin A1c Continue Tresiba/alternative and moderate dose sliding scale protocol Accu-Cheks before meals and at bedtime (6) BPH (benign prostatic hyperplasia) Current Visit: Yes Status: Chronic Qualifiers: Lower urinary tract symptom presence: symptoms present Plan to address problem: Continue tamsulosin (7) DVT prophylaxis Current Visit: Yes Status: Acute Plan to address problem: Lovenox and GI prophylaxis
[2018-11-14] MEDS ORDERED: ZOFRAN IV PRN (19:46)
[2018-11-14] MEDS ORDERED: MORPHINE IV PRN (19:46)
[2018-11-14] MEDS ORDERED: TYLENOL PO PRN (19:46)
[2018-11-14] MEDS ORDERED: DULCOLAX PR PRN (19:46)
[2018-11-14] MEDS ORDERED: IBUPROFEN PO PRN (19:46)
[2018-11-14] MEDS ORDERED: SODIUM CHLORIDE FLUSH SYRINGE 10 ML IV PRN (19:46)
[2018-11-14] MEDS ORDERED: NON-FORMULARY (Metoprolol 25 MG) PO SCH (20:00)
[2018-11-14] MEDS ORDERED: PROVENTIL IH PRN (20:21)
[2018-11-14] MEDS ORDERED: NON-FORMULARY (Metformin Hcl [Metformin Hcl] 1,000 MG) PO SCH (22:00)
[2018-11-14] MEDS: FLOMAX PO SCH (23:52)
[2018-11-14] MEDS: GLUCOPHAGE PO SCH (23:52)
[2018-11-14] MEDS: SOLU-Medrol IV SCH (23:53)
[2018-11-14] MEDS: PEPCID IV SCH (23:53)
[2018-11-14] MEDS: LOPRESSOR PO SCH (23:53)
[2018-11-14] MEDS: ROCEPHIN/NS 2 GM/100 ML 2 GM/100 ML BAG IV SCH (23:54)
[2018-11-14] MEDS: SODIUM CHLORIDE FLUSH SYRINGE 10 ML IV SCH (23:54)
[2018-11-14] MEDS ORDERED: NACL 0.9% 250ML 250 ML ONE (23:59)
[2018-11-15] MEDS: HumaLOG SUB-Q SCH ×5 (00:06→21:45)
[2018-11-15] MEDS: ZITHROMAX 500 MG in NACL 0.9% 250ML 250 ML IV SCH ×2 (00:06→11:40)
[2018-11-15] MEDS: LANTUS SUB-Q SCH ×2 (00:31→21:46)
[2018-11-15 06:27] LABS: Basophils % (Auto) 0.1 % (0.0-1.8); Hematocrit 41.3 % (35.5-45.6); Lymphocytes # (Auto) 0.9 K/mm3 (1.2-5.4); Lymphocytes % (Auto) 14.9 % (13.4-35.0); Mean Corpuscular HGB Conc 34 % (32-34); Mean Corpuscular Volume 91 fl (84-94); Monocytes # (Auto) 0.5 K/mm3 (0.0-0.8); Platelet Count 121 K/mm3 (140-440); Red Blood Count 4.52 M/mm3 (3.65-5.03); Red Cell Distribution Width 14.7 % (13.2-15.2)
[2018-11-15 06:43] LABS: Alanine Aminotransferase 10 units/L (7-56); Albumin 3.2 g/dL (3.9-5); BUN/Creatinine Ratio 30; Blood Urea Nitrogen 30 mg/dL (9-20); Calcium 8.9 mg/dL (8.4-10.2); Hemolysis Index 12
[2018-11-15] MEDS: DUONEB *Not for PRN Use IH SCH ×4 (08:11→21:37)
[2018-11-15] MEDS: GLUCOPHAGE PO SCH ×2 (10:48→21:45)
[2018-11-15] MEDS: PEPCID IV SCH ×2 (10:48→21:44)
[2018-11-15] MEDS: SOLU-Medrol IV SCH ×2 (10:48→21:43)
[2018-11-15] MEDS: ROCEPHIN/NS 2 GM/100 ML 2 GM/100 ML BAG IV SCH (10:49)
[2018-11-15] MEDS: FLOMAX PO SCH (10:49)
[2018-11-15] MEDS: SODIUM CHLORIDE FLUSH SYRINGE 10 ML IV SCH ×2 (10:50→21:46)
[2018-11-15] MEDS: LOPRESSOR PO SCH (10:50)
--- NOTE | 2018-11-15 18:51 | Progress Note ---
Assessment and Plan Assessment and plan: Acute resp failure due to pneumonis Admitted Cont Kathryn Manriquez Blood cultures drawn consult Pulm Wheezing. No history of COPD Give solumedrol Duoneb Hypertension. Monitor BP Diabetes mellitus type 2. Accuchek qac and hs Full code status History Interval history: Shortness of breath , better Hospitalist Physical - Physical exam Narrative exam: Gen: Not in acute distress, lying in bed HEENT: Normocephalic, atraumatic Neck: supple, no JVD Heart: S1 and S2 reg, no murmurs, rubs or gallop Lungs: Bilateral rhonchi, wheeze, crackles left base Abd: soft, non tender, non distended, normal BS Ext: No edema, no clubbing, no cyanosis, Neuro: Awake,alert, oriented x 3, no focal neurological signs - Constitutional Vitals: Temp Pulse Resp BP Pulse Ox 98.0 F 98 H 20 130/63 93 11/15/18 16:26 11/15/18 18:00 11/15/18 16:26 11/15/18 16:26 11/15/18 16:26 General appearance: Present: obese Results - Labs CBC & Chem 7: 11/16/18 06:03 11/15/18 05:15 Labs: Laboratory Last Values WBC 6.0 K/mm3 (4.5-11.0) 11/15/18 05:15 RBC 4.52 M/mm3 (3.65-5.03) 11/15/18 05:15 Hgb 14.0 gm/dl (11.8-15.2) 11/15/18 05:15 Hct 41.3 % (35.5-45.6) 11/15/18 05:15 MCV 91 fl (84-94) 11/15/18 05:15 MCH 31 pg (28-32) 11/15/18 05:15 MCHC 34 % (32-34) 11/15/18 05:15 RDW 14.7 % (13.2-15.2) 11/15/18 05:15 Plt Count 121 K/mm3 (140-440) L 11/15/18 05:15 Lymph % (Auto) 14.9 % (13.4-35.0) 11/15/18 05:15 [place] % (Auto) 8.0 % (0.0-7.3) H 11/15/18 05:15 Eos % (Auto) 0.0 % (0.0-4.3) 11/15/18 05:15 Baso % (Auto) 0.1 % (0.0-1.8) 11/15/18 05:15 Lymph # 0.9 K/mm3 (1.2-5.4) L 11/15/18 05:15 [place] # 0.5 K/mm3 (0.0-0.8) 11/15/18 05:15 Eos # 0.0 K/mm3 (0.0-0.4) 11/15/18 05:15 Baso # 0.0 K/mm3 (0.0-0.1) 11/15/18 05:15 Seg Neutrophils % 77.0 % (40.0-70.0) H 11/15/18 05:15 Seg Neutrophils # 4.6 K/mm3 (1.8-7.7) 11/15/18 05:15 Sodium 141 mmol/L (137-145) 11/15/18 05:15 Potassium 5.1 mmol/L (3.6-5.0) H 11/15/18 05:15 Chloride 106.5 mmol/L (98-107) 11/15/18 05:15 Carbon Dioxide 21 mmol/L (22-30) L 11/15/18 05:15 19 mmol/L 11/15/18 05:15 BUN 30 mg/dL (9-20) H 11/15/18 05:15 1.0 mg/dL (0.8-1.5) 11/15/18 05:15 Estimated GFR > 60 ml/min 11/15/18 05:15 30 % 11/15/18 05:15 Glucose 216 mg/dL (75-100) H 11/15/18 05:15 POC Glucose 172 (70-105) H 11/15/18 16:57 8.1 % (4-6) H 11/14/18 14:53 Lactic Acid 1.20 mmol/L (0.7-2.0) 11/14/18 14:55 Calcium 8.9 mg/dL (8.4-10.2) 11/15/18 05:15 < 0.20 mg/dL (0.1-1.2) 11/15/18 05:15 AST 15 units/L (5-40) 11/15/18 05:15 ALT 10 units/L (7-56) 11/15/18 05:15 85 units/L (35-129) 11/15/18 05:15 198 units/L (55-170) H 11/14/18 14:57 CK-MB (CK-2) 3.0 ng/mL (0.0-4.0) 11/14/18 14:57 CK-MB (CK-2) Rel Index 1.5 (0-4) 11/14/18 14:57 < 0.010 ng/mL (0.00-0.029) 11/14/18 14:57 NT-Pro-B Natriuret Pep 288.6 pg/mL (0-900) 11/14/18 14:52 6.5 g/dL (6.3-8.2) 11/15/18 05:15 3.2 g/dL (3.9-5) L 11/15/18 05:15 1.0 % 11/15/18 05:15 Active Medications - Current Medications Current Medications: Generic Name Dose Route Start Last Admin Trade Name Freq PRN Reason Stop Dose Admin Acetaminophen 650 mg 11/14/18 19:46 Tylenol PO Q4H PRN Pain MILD(1-3)/Fever >100.5/NUÑEZ Albuterol 2.5 mg 11/14/18 20:21 Proventil IH Q4HRT PRN Shortness Of Breath Albuterol/Ipratropium 1 ampul 11/15/18 08:00 11/15/18 15:28 Duoneb *Not For Prn Use* IH 1 ampul QIDRT GRETCHEN Administration Bisacodyl 10 mg 11/14/18 19:46 Dulcolax MT QDAY PRN Constipation unrelieved by MOM Famotidine 20 mg 11/14/18 22:00 11/15/18 10:48 Pepcid IV 20 mg BID GRETCHEN Administration Ceftriaxone Sodium 2 gm in 100 mls @ 200 mls/hr 11/14/18 21:00 11/15/18 10:49 Rocephin/Ns 2 Gm/100 Ml IV 100 mls/hr Q24HR GRETCHEN Administration Protocol Azithromycin 500 mg/ Sodium 250 mls @ 250 mls/hr 11/14/18 21:00 11/15/18 11:40 Chloride IV 250 mls/hr Q24HR GRETCHEN Administration Ibuprofen 600 mg 11/14/18 19:46 Motrin PO Q6H PRN Pain, Mild (1-3) Insulin Glargine 25 units 11/15/18 00:15 11/15/18 00:31 Lantus SUB-Q 25 units QHS GRETCHEN Administration Insulin Human Lispro 0 unit 11/14/18 22:00 11/15/18 18:15 Humalog SUB-Q 2 unit ACHS GRETCHEN Administration Protocol Metformin HCl 1,000 mg 11/14/18 22:00 11/15/18 10:48 Glucophage PO 1,000 mg BID GRETCHEN Administration Methylprednisolone Sodium Succinate 20 mg 11/14/18 22:00 11/15/18 10:48 Solu-Medrol IV 20 mg Q12HR GRETCHEN Administration Metoprolol Tartrate 25 mg 11/14/18 22:00 11/15/18 10:50 Lopressor PO 25 mg QDAY GRETCHEN Administration Morphine Sulfate 2 mg 11/14/18 19:46 Morphine IV Q4H PRN Pain, Moderate (4-6) Ondansetron HCl 4 mg 11/14/18 19:46 Zofran IV Q8H PRN Nausea And Vomiting Sodium Chloride 10 ml 11/14/18 22:00 11/15/18 10:50 Sodium Chloride Flush Syringe 10 Ml IV 10 ml BID GRETCHEN Administration Sodium Chloride 10 ml 11/14/18 19:46 Sodium Chloride Flush Syringe 10 Ml IV PRN PRN LINE FLUSH Tamsulosin HCl 0.4 mg 11/14/18 20:00 11/15/18 10:49 Flomax PO 0.4 mg QDAY GRETCHEN Administration Nutrition/Malnutrition Assess - Dietary Evaluation Nutrition/Malnutrition Findings: Nutrition Notes Start: 11/15/18 15:50 Freq: Status: Active Protocol: Document 11/15/18 15:50 [place] (Rec: 11/15/18 16:02 OH [id number]) Nutrition Notes 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 Pt. lying in bed receiving a breathing treatment. Pt. verbalized he has noticed a significant uptick in his weight since beginning insulin. Pt. noted to be morbidly obese. Pt. reports he consumes milk/ cereal for breakfast 1-2 x/wk. Pt. taking 42 u insulin nightly not ssi. Percent of energy/protein needs met: 70/70% Burn Absent Trauma Absent GI Symptoms None Current % PO Fair (50-74%) #2 Nutrition Diagnosis Overweight/obesity Etiology excessive intake CHO sources/ high insulin intake As Evidenced by Signs and Symptoms BMI >35 #1 Nutrition Diagnosis Food and nutrition-related knowledge deficit Etiology no prior/inadequate DM related education As Evidenced by Signs and Symptoms questions related to CHO sources/insulin/wt gain Is patient on ventilator? No Is Patient Ambulatory and/or Out of Bed Yes REE-([facility]-ambulatory/OOB) [ 2385.994 NUTR.MSJOOB] Kcal/Kg value to use for calculation 18 Approximate Energy Requirements Using 2016 kcal/Kg Calculation Used for Recommendations Kcal/kg Additional Notes PRO: 0.8-1.0 g/kg IBW 57-72 G/DAY FLUID: 1 mL/kcal Nutrition Intervention Change Diet Order: Cont consistent CHO Teaching Recipient Patient Learning Readiness Good Teaching Methods Discussion,Demonstration, Handout Response to Teaching Verbalize understanding Education Handouts Provided Pt. reports he has noticed increase in his weight since beginning insulin regiment. Educ pt on intake of simple/ low fiber CHO sources/insulin and resulting wt gain. Enc pt to monitor po CHO intake and continue to keep recording of bloodsugar levels. Provided pt w/handout listing best CHO choices. Reinforced lean PRO sources. Sugg pt set up appointment w/[facility] for DM education class. Discussed w/pt MNT therapy benefit for Medicare beneficiaries and how to use it. Barriers to Learning Motivation,Physical,Age related,Environmental Goal #1 po intake to achieve >75% nutrient requirements Anticipated Discharge Needs: pt to be encouraged to f/u w/ [id number] education class Revisit per MD consult or patient Sign Off request:
[2018-11-16 06:34] LABS: Hematocrit 39.4 % (35.5-45.6); Hemoglobin 13.2 gm/dl (11.8-15.2); Mean Corpuscular HGB Conc 34 % (32-34); Mean Corpuscular Volume 92 fl (84-94); Platelet Count 126 K/mm3 (140-440); Red Blood Count 4.27 M/mm3 (3.65-5.03); Red Cell Distribution Width 14.9 % (13.2-15.2)
[2018-11-16 06:59] LABS: Calcium 8.7 mg/dL (8.4-10.2)
[2018-11-16] MEDS: HumaLOG SUB-Q SCH ×4 (08:45→23:12)
[2018-11-16] MEDS: DUONEB *Not for PRN Use IH SCH ×4 (09:50→21:17)
[2018-11-16] MEDS: FLOMAX PO SCH (10:47)
[2018-11-16] MEDS: LOPRESSOR PO SCH (10:47)
[2018-11-16] MEDS: GLUCOPHAGE PO SCH ×2 (10:47→23:11)
[2018-11-16] MEDS: ZITHROMAX 500 MG in NACL 0.9% 250ML 250 ML IV SCH (10:49)
[2018-11-16] MEDS: ROCEPHIN/NS 2 GM/100 ML 2 GM/100 ML BAG IV SCH (10:50)
[2018-11-16] MEDS: SODIUM CHLORIDE FLUSH SYRINGE 10 ML IV SCH ×2 (10:51→23:12)
[2018-11-16] MEDS: SOLU-Medrol IV SCH ×2 (10:51→23:11)
[2018-11-16] MEDS: PEPCID IV SCH ×2 (10:52→23:11)
--- NOTE | 2018-11-16 11:21 | Progress Note ---
Assessment and Plan Assessment and plan: Acute hypoxemic respiratory failure. Etiology secondary to pneumonia and probable reactive airway disease. Left lower lobe pneumonia. Continue IV antibiotics. Reactive airway disease. ? COPD. Patient has no diagnosis but wheezes on exam. Patient will likely need outpatient PFTs. Hypertension. Continue antihypertensive medications. Diabetes mellitus type 2. Continue Accu-Cheks and sliding scale. History Interval history: No new issues overnight. Patient does complain of shortness of breath with minimal exertion. Hospitalist Physical - Constitutional Vitals: Temp Pulse Resp BP Pulse Ox 97.7 F 92 H 18 159/93 95 11/16/18 08:35 11/16/18 09:54 11/16/18 09:54 11/16/18 08:35 11/16/18 08:35 General appearance: Present: obese - EENT Eyes: Present: PERRL, EOM intact ENT: hearing intact, clear oral mucosa, dentition normal - Neck Neck: Present: supple, normal ROM - Respiratory Respiratory effort: normal Respiratory: bilateral: CTA - Cardiovascular Rhythm: regular Heart Sounds: Present: S1 & S2. Absent: gallop, rub - Extremities Extremities: no ischemia, No edema, Full ROM - Abdominal General gastrointestinal: soft, non-tender, non-distended, normal bowel sounds - Integumentary Integumentary: Present: clear, warm, dry - Neurologic Neurologic: CNII-XII intact, moves all extremities Results - Labs CBC & Chem 7: 11/16/18 06:03 11/16/18 06:03 Labs: Laboratory Last Values WBC 9.8 K/mm3 (4.5-11.0) 11/16/18 06:03 RBC 4.27 M/mm3 (3.65-5.03) 11/16/18 06:03 Hgb 13.2 gm/dl (11.8-15.2) 11/16/18 06:03 Hct 39.4 % (35.5-45.6) 11/16/18 06:03 MCV 92 fl (84-94) 11/16/18 06:03 MCH 31 pg (28-32) 11/16/18 06:03 MCHC 34 % (32-34) 11/16/18 06:03 RDW 14.9 % (13.2-15.2) 11/16/18 06:03 Plt Count 126 K/mm3 (140-440) L 11/16/18 06:03 Lymph % (Auto) 14.9 % (13.4-35.0) 11/15/18 05:15 [place] % (Auto) 8.0 % (0.0-7.3) H 11/15/18 05:15 Eos % (Auto) 0.0 % (0.0-4.3) 11/15/18 05:15 Baso % (Auto) 0.1 % (0.0-1.8) 11/15/18 05:15 Lymph # 0.9 K/mm3 (1.2-5.4) L 11/15/18 05:15 [place] # 0.5 K/mm3 (0.0-0.8) 11/15/18 05:15 Eos # 0.0 K/mm3 (0.0-0.4) 11/15/18 05:15 Baso # 0.0 K/mm3 (0.0-0.1) 11/15/18 05:15 Seg Neutrophils % 77.0 % (40.0-70.0) H 11/15/18 05:15 Seg Neutrophils # 4.6 K/mm3 (1.8-7.7) 11/15/18 05:15 Sodium 145 mmol/L (137-145) 11/16/18 06:03 Potassium 4.8 mmol/L (3.6-5.0) 11/16/18 06:03 Chloride 107.2 mmol/L (98-107) H 11/16/18 06:03 Carbon Dioxide 24 mmol/L (22-30) 11/16/18 06:03 19 mmol/L 11/16/18 06:03 BUN 36 mg/dL (9-20) H 11/16/18 06:03 1.2 mg/dL (0.8-1.5) 11/16/18 06:03 Estimated GFR 59 ml/min 11/16/18 06:03 30 % 11/16/18 06:03 Glucose 175 mg/dL (75-100) H 11/16/18 06:03 POC Glucose 131 (70-105) H 11/16/18 08:45 8.1 % (4-6) H 11/14/18 14:53 Lactic Acid 1.20 mmol/L (0.7-2.0) 11/14/18 14:55 Calcium 8.7 mg/dL (8.4-10.2) 11/16/18 06:03 < 0.20 mg/dL (0.1-1.2) 11/15/18 05:15 AST 15 units/L (5-40) 11/15/18 05:15 ALT 10 units/L (7-56) 11/15/18 05:15 85 units/L (35-129) 11/15/18 05:15 198 units/L (55-170) H 11/14/18 14:57 CK-MB (CK-2) 3.0 ng/mL (0.0-4.0) 11/14/18 14:57 CK-MB (CK-2) Rel Index 1.5 (0-4) 11/14/18 14:57 < 0.010 ng/mL (0.00-0.029) 11/14/18 14:57 NT-Pro-B Natriuret Pep 288.6 pg/mL (0-900) 11/14/18 14:52 6.5 g/dL (6.3-8.2) 11/15/18 05:15 3.2 g/dL (3.9-5) L 11/15/18 05:15 1.0 % 11/15/18 05:15 Active Medications - Current Medications Current Medications: Generic Name Dose Route Start Last Admin Trade Name Freq PRN Reason Stop Dose Admin Acetaminophen 650 mg 11/14/18 19:46 Tylenol PO Q4H PRN Pain MILD(1-3)/Fever >100.5/NUÑEZ Albuterol 2.5 mg 11/14/18 20:21 Proventil IH Q4HRT PRN Shortness Of Breath Albuterol/Ipratropium 1 ampul 11/15/18 08:00 11/16/18 09:50 Duoneb *Not For Prn Use* IH 1 ampul QIDRT GRETCHEN Administration Bisacodyl 10 mg 11/14/18 19:46 Dulcolax [place] QDAY PRN Constipation unrelieved by MOM Famotidine 20 mg 11/14/18 22:00 11/15/18 21:44 Pepcid IV 20 mg BID GRETCHEN Administration Ceftriaxone Sodium 2 gm in 100 mls @ 200 mls/hr 11/14/18 21:00 11/15/18 10:49 Rocephin/Ns 2 Gm/100 Ml IV 100 mls/hr Q24HR GRETCHEN Administration Protocol Azithromycin 500 mg/ Sodium 250 mls @ 250 mls/hr 11/14/18 21:00 11/15/18 11:40 Chloride IV 250 mls/hr Q24HR GRETCHEN Administration Ibuprofen 600 mg 11/14/18 19:46 Motrin PO Q6H PRN Pain, Mild (1-3) Insulin Glargine 25 units 11/15/18 00:15 11/15/18 21:46 Lantus SUB-Q 25 units QHS GRETCHEN Administration Insulin Human Lispro 0 unit 11/14/18 22:00 11/16/18 08:45 Humalog SUB-Q Not Given ACHS [facility] Protocol Metformin HCl 1,000 mg 11/14/18 22:00 11/15/18 21:45 Glucophage PO 1,000 mg BID GRETCHEN Administration Methylprednisolone Sodium Succinate 20 mg 11/14/18 22:00 11/15/18 21:43 Solu-Medrol IV 20 mg Q12HR GRETCHEN Administration Metoprolol Tartrate 25 mg 11/14/18 22:00 11/15/18 10:50 Lopressor PO 25 mg QDAY GRETCHEN Administration Morphine Sulfate 2 mg 11/14/18 19:46 Morphine IV Q4H PRN Pain, Moderate (4-6) Ondansetron HCl 4 mg 11/14/18 19:46 Zofran IV Q8H PRN Nausea And Vomiting Sodium Chloride 10 ml 11/14/18 22:00 11/15/18 21:46 Sodium Chloride Flush Syringe 10 Ml IV 10 ml BID GRETCHEN Administration Sodium Chloride 10 ml 11/14/18 19:46 Sodium Chloride Flush Syringe 10 Ml IV PRN PRN LINE FLUSH Tamsulosin HCl 0.4 mg 11/14/18 20:00 11/15/18 10:49 Flomax PO 0.4 mg QDAY GRETCHEN Administration Nutrition/Malnutrition Assess - Dietary Evaluation Nutrition/Malnutrition Findings: Nutrition Notes Start: 11/15/18 15:50 Freq: Status: Active Protocol: Document 11/15/18 15:50 [place] (Rec: 11/15/18 16:02 OH [id number]) Nutrition Notes 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 Pt. lying in bed receiving a breathing treatment. Pt. verbalized he has noticed a significant uptick in his weight since beginning insulin. Pt. noted to be morbidly obese. Pt. reports he consumes milk/ cereal for breakfast 1-2 x/wk. Pt. taking 42 u insulin nightly not ssi. Percent of energy/protein needs met: 70/70% Burn Absent Trauma Absent GI Symptoms None Current % PO Fair (50-74%) #2 Nutrition Diagnosis Overweight/obesity Etiology excessive intake CHO sources/ high insulin intake As Evidenced by Signs and Symptoms BMI >35 #1 Nutrition Diagnosis Food and nutrition-related knowledge deficit Etiology no prior/inadequate DM related education As Evidenced by Signs and Symptoms questions related to CHO sources/insulin/wt gain Is patient on ventilator? No Is Patient Ambulatory and/or Out of Bed Yes REE-([place]-ambulatory/OOB) [ 2385.994 NUTR.MSJOOB] Kcal/Kg value to use for calculation 18 Approximate Energy Requirements Using 2016 kcal/Kg Calculation Used for Recommendations Kcal/kg Additional Notes PRO: 0.8-1.0 g/kg IBW 57-72 G/DAY FLUID: 1 mL/kcal Nutrition Intervention Change Diet Order: Cont consistent CHO Teaching Recipient Patient Learning Readiness Good Teaching Methods Discussion,Demonstration, Handout Response to Teaching Verbalize understanding Education Handouts Provided Pt. reports he has noticed increase in his weight since beginning insulin regiment. Educ pt on intake of simple/ low fiber CHO sources/insulin and resulting wt gain. Enc pt to monitor po CHO intake and continue to keep recording of bloodsugar levels. Provided pt w/handout listing best CHO choices. Reinforced lean PRO sources. Sugg pt set up appointment w/[facility] for DM education class. Discussed w/pt MNT therapy benefit for Medicare beneficiaries and how to use it. Barriers to Learning Motivation,Physical,Age related,Environmental Goal #1 po intake to achieve >75% nutrient requirements Anticipated Discharge Needs: pt to be encouraged to f/u w/ [id number] education class Revisit per MD consult or patient Sign Off request:
[2018-11-16] MEDS ORDERED: DUONEB *Not for PRN Use IH SCH (16:00)
--- NOTE | 2018-11-16 16:35 | Consultation ---
History of Present Illness Consult date: 11/16/18 Requesting physician: BASSAM GOSS Reason for consult: dyspnea History of present illness: 78 yo admitted with an episode of fairly sudden-onset SOB, wheezing, cough/congestion. Bringing up discolored phlegm. No fevers, chills, chest pain, hemoptysis. Feeling much improved since admit, currently now on RA. Active Medications Acetaminophen (Tylenol) 650 mg PO Q4H PRN PRN Reason: Pain MILD(1-3)/Fever >100.5/NUÑEZ Albuterol (Proventil) 2.5 mg IH Q4HRT PRN PRN Reason: Shortness Of Breath Albuterol/Ipratropium (Duoneb *Not For Prn Use*) 1 ampul IH TIDRT [facility] Last Admin: 11/16/18 14:41 Dose: 1 ampul Documented by: Bisacodyl (Dulcolax) 10 mg HI QDAY PRN PRN Reason: Constipation unrelieved by MOM Famotidine (Pepcid) 20 mg IV BID [facility] Last Admin: 11/16/18 10:52 Dose: 20 mg Documented by: Ceftriaxone Sodium (Rocephin/Ns 2 Gm/100 Ml) 2 gm in 100 mls @ 200 mls/hr IV Q24HR [facility]; Protocol Last Admin: 11/16/18 10:50 Dose: 100 mls/hr Documented by: Azithromycin 500 mg/ Sodium (Chloride) 250 mls @ 250 mls/hr IV Q24HR [facility] Last Admin: 11/16/18 10:49 Dose: 250 mls/hr Documented by: Ibuprofen (Motrin) 600 mg PO Q6H PRN PRN Reason: Pain, Mild (1-3) Insulin Glargine (Lantus) 25 units SUB-Q QHS [facility] Last Admin: 11/15/18 21:46 Dose: 25 units Documented by: Insulin Human Lispro (Humalog) 0 unit SUB-Q ACHS [facility]; Protocol Last Admin: 11/16/18 12:43 Dose: Not Given Documented by: Metformin HCl (Glucophage) 1,000 mg PO BID [facility] Last Admin: 11/16/18 10:47 Dose: 1,000 mg Documented by: Methylprednisolone Sodium Succinate (Solu-Medrol) 20 mg IV Q12HR [facility] Last Admin: 11/16/18 10:51 Dose: 20 mg Documented by: Metoprolol Tartrate (Lopressor) 25 mg PO QDAY [facility] Last Admin: 11/16/18 10:47 Dose: 25 mg Documented by: Morphine Sulfate (Morphine) 2 mg IV Q4H PRN PRN Reason: Pain, Moderate (4-6) Ondansetron HCl (Zofran) 4 mg IV Q8H PRN PRN Reason: Nausea And Vomiting Sodium Chloride (Sodium Chloride Flush Syringe 10 Ml) 10 ml IV BID [facility] Last Admin: 11/16/18 10:51 Dose: 10 ml Documented by: Sodium Chloride (Sodium Chloride Flush Syringe 10 Ml) 10 ml IV PRN PRN PRN Reason: LINE FLUSH Tamsulosin HCl (Flomax) 0.4 mg PO QDAY [facility] Last Admin: 11/16/18 10:47 Dose: 0.4 mg Documented by: Past History Past Medical History: other (HTN, DM, BPH, Obesity) Social history: full code. denies: smoking, alcohol abuse, prescription drug abuse, IV drug use Family history: other (No pulm issues reported) Medications and Allergies Allergies Allergy/AdvReac Type Severity Reaction Status Date / Time No Known Allergies Allergy Unverified 04/02/17 14:43 Home Medications Medication Instructions Recorded Confirmed Last Taken Type Metformin HCl 1,000 mg PO DAILY 11/14/18 11/15/18 11/13/18 18:00 History Metoprolol 25 mg PO DAILY 11/14/18 11/15/18 11/13/18 18:00 History Tamsulosin [Flomax] 0.4 mg PO DAILY 11/14/18 11/15/18 11/13/18 18:00 History Tresiba Flextouch U-100 1 box NOTAPPLIC ACHS 11/14/18 11/15/18 11/13/18 08:00 History Active Meds: Active Medications Acetaminophen (Tylenol) 650 mg PO Q4H PRN PRN Reason: Pain MILD(1-3)/Fever >100.5/NUÑEZ Albuterol (Proventil) 2.5 mg IH Q4HRT PRN PRN Reason: Shortness Of Breath Albuterol/Ipratropium (Duoneb *Not For Prn Use*) 1 ampul IH TIDRT [facility] Last Admin: 11/16/18 14:41 Dose: 1 ampul Documented by: Bisacodyl (Dulcolax) 10 mg HI QDAY PRN PRN Reason: Constipation unrelieved by MOM Famotidine (Pepcid) 20 mg IV BID [facility] Last Admin: 11/16/18 10:52 Dose: 20 mg Documented by: Ceftriaxone Sodium (Rocephin/Ns 2 Gm/100 Ml) 2 gm in 100 mls @ 200 mls/hr IV Q24HR [facility]; Protocol Last Admin: 11/16/18 10:50 Dose: 100 mls/hr Documented by: Azithromycin 500 mg/ Sodium (Chloride) 250 mls @ 250 mls/hr IV Q24HR [facility] Last Admin: 11/16/18 10:49 Dose: 250 mls/hr Documented by: Ibuprofen (Motrin) 600 mg PO Q6H PRN PRN Reason: Pain, Mild (1-3) Insulin Glargine (Lantus) 25 units SUB-Q QHS [facility] Last Admin: 11/15/18 21:46 Dose: 25 units Documented by: Insulin Human Lispro (Humalog) 0 unit SUB-Q ACHS [facility]; Protocol Last Admin: 11/16/18 12:43 Dose: Not Given Documented by: Metformin HCl (Glucophage) 1,000 mg PO BID [facility] Last Admin: 11/16/18 10:47 Dose: 1,000 mg Documented by: Methylprednisolone Sodium Succinate (Solu-Medrol) 20 mg IV Q12HR [facility] Last Admin: 11/16/18 10:51 Dose: 20 mg Documented by: Metoprolol Tartrate (Lopressor) 25 mg PO QDAY [facility] Last Admin: 11/16/18 10:47 Dose: 25 mg Documented by: Morphine Sulfate (Morphine) 2 mg IV Q4H PRN PRN Reason: Pain, Moderate (4-6) Ondansetron HCl (Zofran) 4 mg IV Q8H PRN PRN Reason: Nausea And Vomiting Sodium Chloride (Sodium Chloride Flush Syringe 10 Ml) 10 ml IV BID [facility] Last Admin: 11/16/18 10:51 Dose: 10 ml Documented by: Sodium Chloride (Sodium Chloride Flush Syringe 10 Ml) 10 ml IV PRN PRN PRN Reason: LINE FLUSH Tamsulosin HCl (Flomax) 0.4 mg PO QDAY [facility] Last Admin: 11/16/18 10:47 Dose: 0.4 mg Documented by: Review of Systems All systems: negative Physical Examination Vital signs: Vital Signs Temp Pulse Resp BP Pulse Ox 98.1 F 88 24 185/97 93 11/14/18 14:35 11/14/18 14:35 11/14/18 14:35 11/14/18 14:35 11/14/18 14:35 General appearance: no acute distress, alert, other (obese) Eyes: non-icteric ENT: oropharynx moist Neck: supple Effort: normal Ascultation: Bilateral: wheezes, rhonchi Cardiovascular: regular rate and rhythm (no mrg) Gastrointestinal: normoactive bowel sounds, soft, non-tender, non-distended, other (obese) Integumentary: normal Extremities: no cyanosis, no edema, pink and warm Musculoskeletal: no deformities normal mental status, non-focal exam, pupils equal and round, CN II-XII normal mood appropriate, affect normal Results - Laboratory Findings CBC and BMP: 11/16/18 06:03 11/16/18 06:03 Abnormal lab findings: Abnormal Labs 11/14/18 11/14/18 11/14/18 14:52 14:53 14:53 Plt Count 98 L [place] % (Auto) 14.9 H Lymph # Seg Neutrophils % Potassium Chloride Carbon Dioxide BUN 23 H Glucose 127 H POC Glucose Hemoglobin A1c 8.1 H Total Creatine Kinase Albumin 11/14/18 11/14/18 11/15/18 14:57 21:01 00:09 Plt Count [place] % (Auto) Lymph # Seg Neutrophils % Potassium Chloride Carbon Dioxide BUN Glucose POC Glucose 373 H 362 H Hemoglobin A1c Total Creatine Kinase 198 H Albumin 11/15/18 11/15/18 11/15/18 05:15 05:15 08:12 Plt Count 121 L [place] % (Auto) 8.0 H Lymph # 0.9 L Seg Neutrophils % 77.0 H Potassium 5.1 H Chloride Carbon Dioxide 21 L BUN 30 H Glucose 216 H POC Glucose 146 H Hemoglobin A1c Total Creatine Kinase Albumin 3.2 L 11/15/18 11/15/18 11/15/18 12:11 16:57 21:25 Plt Count [place] % (Auto) Lymph # Seg Neutrophils % Potassium Chloride Carbon Dioxide BUN Glucose POC Glucose 203 H 172 H 196 H Hemoglobin A1c Total Creatine Kinase Albumin 11/16/18 11/16/18 11/16/18 06:03 06:03 08:45 Plt Count 126 L [place] % (Auto) Lymph # Seg Neutrophils % Potassium Chloride 107.2 H Carbon Dioxide BUN 36 H Glucose 175 H POC Glucose 131 H Hemoglobin A1c Total Creatine Kinase Albumin 11/16/18 12:43 Plt Count [place] % (Auto) Lymph # Seg Neutrophils % Potassium Chloride Carbon Dioxide BUN Glucose POC Glucose 146 H Hemoglobin A1c Total Creatine Kinase Albumin - Diagnostic Findings Chest x-ray: report reviewed, image reviewed CT scan - chest: report reviewed, image reviewed (LLL tree-in-bud densities) Assessment and Plan Imp: 1. Bronchiolitis LLL, probably infectious 2. Suspect COPD with exac. (smoked 1 ppd x 40 years); r/o Asthma 3. Acute respiratory failure, hypoxia 4. Obesity Rec: 1. Complete at least 7 days of empiric ABX 2. Prednisone taper at d/c 3. Arrange home neb machine and Rx for Albuterol nebs at d/c 4. Needs to f/u with me in 1-2 weeks for PFTs, he understands and states he will hold off and f/u with his PCP instead 5. Likely home in AM if continued improvement Plan of care reviewed w/ patient, he understands/agrees Thanks for the consult.
[2018-11-16] MEDS: LANTUS SUB-Q SCH (23:11)
--- NOTE | 2018-11-17 08:32 | Discharge Summary ---
Providers - Providers Date of Admission: 11/14/18 17:41 Date of discharge: 11/17/18 Attending physician: MARIO IQBAL 11/14/18 Consult to Case Management [CONS] Routine Services Needed at Discharge: Home Health Services Notified:: case planner 11/15/18 12:56 Consult to Physician [CONS] Routine Comment: Consulting Provider: JUAN RAMON [place] Physician Instructions: Reason For Exam: pneumonia, wheezing 11/16/18 16:29 Consult to Case Management [CONS] Routine Services Needed at Discharge: DME Equipment Notified:: case management Comment:: Nebulizer machine for copd Primary care physician: ANGEL FOURNIER MD Hospitalization Reason for admission: sob Condition: Critical Hospital course: 78 yo admitted with an episode of fairly sudden-onset SOB, wheezing, cough/congestion. The patient reported coughing up discolored phlegm prior to admission. The patient was admitted with diagnosis of acute hypoxemic respiratory failure secondary to left lower lobe pneumonia and probable COPD exacerbation. The patient was treated with breathing treatments/bronchodilators/nebulizers and IV Solu-Medrol with significant improvement. Patient also received IV antibiotics. Pulmonary saw the patient in consultation and felt that she could be discharged home with by mouth prednisone and follow-up as an outpatient. Dedicated discharge time 35 minutes. Arrange home neb machine and Rx for Albuterol nebs at d/c Needs to f/u with me in 1-2 weeks for PFTs, he understands and states he will hold off and f/u with his PCP instead Disposition: DC-01 TO HOME OR SELFCARE Time spent for discharge: 35 - Discharge Diagnoses (1) Acute respiratory failure with hypoxia Status: Acute (2) Bronchitis Status: Acute (3) Left lower lobe pneumonia Status: Acute Qualifiers: Pneumonia type: due to unspecified organism Qualified Code(s): J18.1 - Lobar pneumonia, unspecified organism (4) Hypertension Status: Chronic Qualifiers: Hypertension type: essential hypertension Qualified Code(s): I10 - Essential (primary) hypertension (5) Insulin dependent diabetes mellitus Status: Chronic Core Measure Documentation - Palliative Care Palliative Care/ Comfort Measures: Not Applicable - Core Measures Any of the following diagnoses?: none Exam - Constitutional Vitals: Temp Pulse Resp BP Pulse Ox 97.4 F L 77 16 163/85 94 11/17/18 08:14 11/17/18 04:40 11/17/18 08:14 11/17/18 08:14 11/17/18 04:40 General appearance: Present: no acute distress, well-nourished - EENT Eyes: Present: PERRL ENT: hearing intact, clear oral mucosa - Neck Neck: Present: supple, normal ROM - Respiratory Respiratory effort: normal Respiratory: bilateral: CTA - Cardiovascular Heart Sounds: Present: S1 & S2. Absent: rub, click - Extremities Extremities: pulses symmetrical, No edema Peripheral Pulses: within normal limits - Abdominal General gastrointestinal: Present: soft, non-tender, non-distended, normal bowel sounds Male genitourinary: Present: normal - Integumentary Integumentary: Present: clear, warm, dry - Musculoskeletal Musculoskeletal: gait normal, strength equal bilaterally - Psychiatric Psychiatric: appropriate mood/affect, intact judgment & insight - Neurologic Neurologic: CNII-XII intact, moves all extremities Plan Activity: no restrictions Weight Bearing Status: Weight Bear as Tolerated Diet: diabetic Prescriptions: Nebulizer Accessories [Aeroneb Go] 1 each MC PRN PRN #1 each PRN Reason: Wheezing cefUROXime [Ceftin] 500 mg PO Q12H #14 tablet Nebulizer [Compact Compressor Nebulizer] 1 each MC Q4HR #1 each Ipratropium/Albuterol Sulfate [DUONEB *Not for PRN Use*] 1 ampul IH TIDRT 30 Days ampul.neb Tamsulosin [Flomax] 0.4 mg PO DAILY 30 Days capsule methylPREDNISolone [Medrol] 4 mg PO QAM #1 tab.ds.pk Metformin HCl 1,000 mg PO DAILY 30 Days tablet Metoprolol 25 mg PO DAILY #30 ALBUTEROL NEB's [Proventil 0.083% NEBS] 2.5 mg IH Q4HRT PRN 30 Days nebu PRN Reason: Shortness Of Breath
[2018-11-17] MEDS: HumaLOG SUB-Q SCH ×3 (08:33→16:52)
[2018-11-17] MEDS: DUONEB *Not for PRN Use IH SCH ×2 (09:28→14:40)
[2018-11-17] MEDS: SOLU-Medrol IV SCH (10:15)
[2018-11-17] MEDS: ROCEPHIN/NS 2 GM/100 ML 2 GM/100 ML BAG IV SCH (10:16)
[2018-11-17] MEDS: PEPCID IV SCH (10:17)
[2018-11-17] MEDS: ZITHROMAX 500 MG in NACL 0.9% 250ML 250 ML IV SCH (10:17)
[2018-11-17] MEDS: SODIUM CHLORIDE FLUSH SYRINGE 10 ML IV SCH (10:17)
[2018-11-17] MEDS: GLUCOPHAGE PO SCH (10:19)
[2018-11-17] MEDS: LOPRESSOR PO SCH (10:19)
[2018-11-17] MEDS: FLOMAX PO SCH (10:23)
--- NOTE | 2018-11-17 11:10 | Progress Note ---
Assessment and Plan Imp: 1. Bronchiolitis LLL, probably infectious 2. Suspect COPD with exac. (smoked 1 ppd x 40 years); r/o Asthma 3. Acute respiratory failure, hypoxia 4. Obesity 5. Chronic thrombocytopenia Rec: 1. Complete at least 7 days of empiric ABX 2. Prednisone taper at d/c; recommend 40mg x 3 days, 30mg x 3 days, 20mg x 3 days, 10mg x 3 days 3. Arrange home neb machine and Rx for Albuterol nebs at d/c; order placed w/ case management social worker 4. Would also give him Symbicort 160/4.5 2 puffs BID until f/u with me 5. Needs to f/u with me in 1-2 weeks for PFTs, he understands 6. Lung exam improved, he is on RA, and wants to go home; believe he is stable t o do so today with the above recs & close f/u Plan of care reviewed with patient, he understands/agrees Subjective Date of service: 11/17/18 Principal diagnosis: Wheezing Interval history: No events. Awake, alert. Had dry cough through the night, better this AM. SOB/wheezing/congestion all better today. Able to ambulate in room. On RA. Wants to go home. Active Medications Acetaminophen (Tylenol) 650 mg PO Q4H PRN PRN Reason: Pain MILD(1-3)/Fever >100.5/NUÑEZ Albuterol (Proventil) 2.5 mg IH Q4HRT PRN PRN Reason: Shortness Of Breath Albuterol/Ipratropium (Duoneb *Not For Prn Use*) 1 ampul IH TIDRT [facility] Last Admin: 11/17/18 09:28 Dose: 1 ampul Documented by: Bisacodyl (Dulcolax) 10 mg HI QDAY PRN PRN Reason: Constipation unrelieved by MOM Famotidine (Pepcid) 20 mg IV BID [facility] Last Admin: 11/17/18 10:17 Dose: 20 mg Documented by: Ceftriaxone Sodium (Rocephin/Ns 2 Gm/100 Ml) 2 gm in 100 mls @ 200 mls/hr IV Q24HR [facility]; Protocol Last Admin: 11/17/18 10:16 Dose: 100 mls/hr Documented by: Azithromycin 500 mg/ Sodium (Chloride) 250 mls @ 250 mls/hr IV Q24HR [facility] Last Admin: 11/17/18 10:17 Dose: 250 mls/hr Documented by: Ibuprofen (Motrin) 600 mg PO Q6H PRN PRN Reason: Pain, Mild (1-3) Insulin Glargine (Lantus) 25 units SUB-Q QHS [facility] Last Admin: 11/16/18 23:11 Dose: 25 units Documented by: Insulin Human Lispro (Humalog) 0 unit SUB-Q ACHS [facility]; Protocol Last Admin: 11/17/18 08:33 Dose: 2 unit Documented by: Metformin HCl (Glucophage) 1,000 mg PO BID [facility] Last Admin: 11/17/18 10:19 Dose: 1,000 mg Documented by: Methylprednisolone Sodium Succinate (Solu-Medrol) 20 mg IV Q12HR [facility] Last Admin: 11/17/18 10:15 Dose: 20 mg Documented by: Metoprolol Tartrate (Lopressor) 25 mg PO QDAY [facility] Last Admin: 11/17/18 10:19 Dose: 25 mg Documented by: Morphine Sulfate (Morphine) 2 mg IV Q4H PRN PRN Reason: Pain, Moderate (4-6) Ondansetron HCl (Zofran) 4 mg IV Q8H PRN PRN Reason: Nausea And Vomiting Sodium Chloride (Sodium Chloride Flush Syringe 10 Ml) 10 ml IV BID [facility] Last Admin: 11/17/18 10:17 Dose: 10 ml Documented by: Sodium Chloride (Sodium Chloride Flush Syringe 10 Ml) 10 ml IV PRN PRN PRN Reason: LINE FLUSH Tamsulosin HCl (Flomax) 0.4 mg PO QDAY [facility] Last Admin: 11/17/18 10:23 Dose: 0.4 mg Documented by: Objective Vital Signs - 12hr 11/17/18 11/17/18 11/17/18 00:09 04:00 04:40 Temperature 97.5 F L 97.8 F Pulse Rate 92 H 81 77 Pulse Rate [ Anterior Bilateral Throughout] Respiratory 20 20 Rate Respiratory Rate [Anterior Bilateral Throughout] Blood Pressure 141/75 167/81 Blood Pressure [Left] O2 Sat by Pulse 95 94 Oximetry 11/17/18 11/17/18 11/17/18 08:00 08:14 09:28 Temperature 97.4 F L 97.4 F L Pulse Rate 75 Pulse Rate [ 78 Anterior Bilateral Throughout] Respiratory 16 16 Rate Respiratory 18 Rate [Anterior Bilateral Throughout] Blood Pressure 163/85 Blood Pressure 163/85 [Left] O2 Sat by Pulse 96 Oximetry 11/17/18 11/17/18 11/17/18 09:34 09:38 10:19 Temperature Pulse Rate 78 Pulse Rate [ 78 Anterior Bilateral Throughout] Respiratory Rate Respiratory 18 Rate [Anterior Bilateral Throughout] Blood Pressure 163/88 Blood Pressure [Left] O2 Sat by Pulse 95 Oximetry Constitutional: no acute distress, alert, other (obese) Eyes: non-icteric ENT: oropharynx moist Neck: supple Effort: normal Ascultation: Bilateral: clear Cardiovascular: regular rate and rhythm (no mrg) Gastrointestinal: normoactive bowel sounds, soft, non-tender, non-distended, other (obese) Integumentary: normal Extremities: no cyanosis, no edema, pink and warm Neurologic: normal mental status, non-focal exam, pupils equal and round, CN II- XII normal Psychiatric: mood appropriate, affect normal CBC and BMP: 11/16/18 06:03 11/16/18 06:03 Abnormal lab findings: Abnormal Labs 11/14/18 11/14/18 11/14/18 14:52 14:53 14:53 Plt Count 98 L [place] % (Auto) 14.9 H Lymph # Seg Neutrophils % Potassium Chloride Carbon Dioxide BUN 23 H Glucose 127 H POC Glucose Hemoglobin A1c 8.1 H Total Creatine Kinase Albumin 11/14/18 11/14/18 11/15/18 14:57 21:01 00:09 Plt Count [place] % (Auto) Lymph # Seg Neutrophils % Potassium Chloride Carbon Dioxide BUN Glucose POC Glucose 373 H 362 H Hemoglobin A1c Total Creatine Kinase 198 H Albumin 11/15/18 11/15/18 11/15/18 05:15 05:15 08:12 Plt Count 121 L [place] % (Auto) 8.0 H Lymph # 0.9 L Seg Neutrophils % 77.0 H Potassium 5.1 H Chloride Carbon Dioxide 21 L BUN 30 H Glucose 216 H POC Glucose 146 H Hemoglobin A1c Total Creatine Kinase Albumin 3.2 L 11/15/18 11/15/18 11/15/18 12:11 16:57 21:25 Plt Count [place] % (Auto) Lymph # Seg Neutrophils % Potassium Chloride Carbon Dioxide BUN Glucose POC Glucose 203 H 172 H 196 H Hemoglobin A1c Total Creatine Kinase Albumin 11/16/18 11/16/18 11/16/18 06:03 06:03 08:45 Plt Count 126 L [place] % (Auto) Lymph # Seg Neutrophils % Potassium Chloride 107.2 H Carbon Dioxide BUN 36 H Glucose 175 H POC Glucose 131 H Hemoglobin A1c Total Creatine Kinase Albumin 11/16/18 11/16/18 11/16/18 12:43 16:45 21:22 Plt Count [place] % (Auto) Lymph # Seg Neutrophils % Potassium Chloride Carbon Dioxide BUN Glucose POC Glucose 146 H 190 H 164 H Hemoglobin A1c Total Creatine Kinase Albumin Chest x-ray: report reviewed, image reviewed
[2018-11-17 16:32] VITALS: BP 140/74
== END 2018-11-17 18:22 | disposition home or self-care (01) | DRG 871 ==
LOC: ED 14:20 → 4A 17:41
PROVIDERS: ADMIT Internal Medicine; ATTEND Hospitalist
DX: A41.9 Sepsis, unspecified organism (principal); J18.1 Lobar pneumonia, unspecified organism; J96.01 Acute respiratory failure with hypoxia; J81.0 Acute pulmonary edema; J44.1 Chronic obstructive pulmonary disease with (acute) exacerbation; J44.0 Chronic obstructive pulmonary disease with (acute) lower respiratory infection; I50.9 Heart failure, unspecified; Z87.891 Personal history of nicotine dependence; E11.9 Type 2 diabetes mellitus without complications; Z79.4 Long term (current) use of insulin; I11.0 Hypertensive heart disease with heart failure; N40.0 Benign prostatic hyperplasia without lower urinary tract symptoms; E66.9 Obesity, unspecified; Z68.36 Body mass index [BMI] 36.0-36.9, adult
CPT/HCPCS: 36415; 71045; 71275; 80048; 80053; 82140; 82550; 82553; 82962; 83036; 83880; 84484; 85025; 85027; 93005; 93010; 93306; 94640; 94760; G0378; J0456; J0692; J0696; J1815; J2920; J2930; J3246; J3475; J7050; Q9967

== ENCOUNTER 2020-04-28 09:39 | Emergency (ER) | payer MEDICARE ==
[2020-04-28 09:58] VITALS: BP 121/87
[2020-04-28] MEDS ORDERED: KETOROLAC 30 MG/1 ML INJ IM ONE (11:48)
--- NOTE | 2020-04-28 11:50 | Emergency Department Report ---
ED Fall HPI - General Chief Complaint: Extremity Injury, Lower Stated Complaint: BI KNEE PAIN Time Seen by Provider: 04/28/20 11:45 Source: patient, EMS Mode of arrival: Wheelchair - History of Present Illness Initial Comments: The patient was evaluated in the emergency department for symptoms described in the history of present illness. He/she was evaluated in the context of the global COVID-19 pandemic, which necessitated consideration that the patient might be at risk for infection with the virus that causes COVID-19. Institutional protocols and algorithms that pertain to the evaluation of patients at risk for COVID-19 are in a state of rapid change based on information released by regulatory bodies including the CDC and federal and state organizations. These policies and algorithms were followed during the patient's care in the emergency department. Please note that these policies, procedures and recommendations changed on a rapid basis. 79-year old -[place] male with a history of arthritis of the knees is brought in by EMS for bilateral knee pain stating that he had fallen off a ladder 3 steps last night. Patient reports that the pain is worse on the right and not able to fully extend his knees. Patient states his pain is a 9 out of 10. Patient does have a past medical history of diabetes and hypertension with arthritis. Patient denies any neck pain head pain back pain. MD Complaint: fall - Related Data Home Medications Medication Instructions Recorded Confirmed Last Taken Tresiba Flextouch U-100 1 box NOTAPPLIC ACHS 11/14/18 11/15/18 11/13/18 08:00 Previous Rx's Medication Instructions Recorded Last Taken Type ALBUTEROL NEB's [Proventil 0.083% 2.5 mg IH Q4HRT PRN 30 Days nebu 11/17/18 Unknown Rx NEBS] Insulin Glargine [Lantus VIAL] 25 units SUB-Q QHS units 11/17/18 Unknown Rx Ipratropium/Albuterol Sulfate 1 ampul IH TIDRT 30 Days ampul.neb 11/17/18 Unknown Rx [DUONEB *Not for PRN Use*] Metformin HCl [metFORMIN] 1,000 mg PO DAILY 30 Days tablet 11/17/18 Unknown Rx Metoprolol 25 mg PO DAILY #30 11/17/18 Unknown Rx Metoprolol [Lopressor TAB] 25 mg PO QDAY tablet 11/17/18 Unknown Rx Nebulizer Accessories [Aeroneb Go] 1 each MC PRN PRN #1 each 11/17/18 Unknown Rx Nebulizer [Compact Compressor 1 each MC Q4HR #1 each 11/17/18 Unknown Rx Nebulizer] Tamsulosin [Flomax] 0.4 mg PO DAILY 30 Days capsule 11/17/18 Unknown Rx cefUROXime [Ceftin] 500 mg PO Q12H #14 tablet 11/17/18 Unknown Rx metFORMIN [Glucophage] 1,000 mg PO BID tablet 11/17/18 Unknown Rx methylPREDNISolone [Medrol] 4 mg PO QAM #1 tab.ds.pk 11/17/18 Unknown Rx Meloxicam [Mobic] 15 mg PO DAILY #14 tablet 01/05/20 Unknown Rx Meloxicam [Mobic] 7.5 mg PO QDAY #30 tablet 04/28/20 Unknown Rx Allergies Allergy/AdvReac Type Severity Reaction Status Date / Time No Known Allergies Allergy Unverified 04/02/17 14:43 ED Review of Systems ROS: Stated complaint: BI KNEE PAIN Other details as noted in HPI ED Past Medical Hx - Past Medical History Previous Medical History?: Yes Hx Hypertension: Yes Hx Diabetes: Yes Hx Sickle Cell Disease: No Hx Arthritis: Yes (knees) Hx Asthma: Yes Hx HIV: No Additional medical history: Prostate disease. - Surgical History Past Surgical History?: No - Social History Smoking Status: Never Smoker Substance Use Type: Prescribed - Medications Home Medications: Home Medications Medication Instructions Recorded Confirmed Last Taken Type Tresiba Flextouch U-100 1 box NOTAPPLIC ACHS 11/14/18 11/15/18 11/13/18 08:00 History ALBUTEROL NEB's [Proventil 0.083% 2.5 mg IH Q4HRT PRN 30 Days nebu 11/17/18 Unknown Rx NEBS] Insulin Glargine [Lantus VIAL] 25 units SUB-Q QHS units 11/17/18 Unknown Rx Ipratropium/Albuterol Sulfate 1 ampul IH TIDRT 30 Days ampul.neb 11/17/18 Unknown Rx [DUONEB *Not for PRN Use*] Metformin HCl [metFORMIN] 1,000 mg PO DAILY 30 Days tablet 11/17/18 Unknown Rx Metoprolol 25 mg PO DAILY #30 11/17/18 Unknown Rx Metoprolol [Lopressor TAB] 25 mg PO QDAY tablet 11/17/18 Unknown Rx Nebulizer Accessories [Aeroneb Go] 1 each MC PRN PRN #1 each 11/17/18 Unknown Rx Nebulizer [Compact Compressor 1 each MC Q4HR #1 each 11/17/18 Unknown Rx Nebulizer] Tamsulosin [Flomax] 0.4 mg PO DAILY 30 Days capsule 11/17/18 Unknown Rx cefUROXime [Ceftin] 500 mg PO Q12H #14 tablet 11/17/18 Unknown Rx metFORMIN [Glucophage] 1,000 mg PO BID tablet 11/17/18 Unknown Rx methylPREDNISolone [Medrol] 4 mg PO QAM #1 tab.ds.pk 11/17/18 Unknown Rx Meloxicam [Mobic] 15 mg PO DAILY #14 tablet 01/05/20 Unknown Rx Meloxicam [Mobic] 7.5 mg PO QDAY #30 tablet 04/28/20 Unknown Rx ED Physical Exam - General Limitations: No Limitations General appearance: alert, in no apparent distress - Head Head exam: Present: atraumatic, normocephalic - Eye Eye exam: Present: normal appearance - ENT ENT exam: Present: mucous membranes moist - Neck Neck exam: Present: normal inspection, full ROM - Respiratory Respiratory exam: Absent: accessory muscle use - Cardiovascular Cardiovascular Exam: Present: regular rate, normal rhythm. Absent: systolic murmur, diastolic murmur, rubs, gallop - Expanded Lower Extremity Exam Left Hip exam: Present: full ROM Upper Leg exam: Present: normal inspection Knee exam: Present: normal inspection, full ROM. Absent: tenderness Lower Leg exam: Present: normal inspection, full ROM Ankle exam: Present: normal inspection Foot/Toe exam: Present: normal inspection, full ROM Neuro vascular tendon exam: Present: no vascular compromise Right Hip exam: Present: full ROM. Absent: tenderness Knee exam: Present: tenderness, swelling. Absent: full ROM, deformity Lower Leg exam: Present: normal inspection. Absent: swelling, abrasion Ankle exam: Present: normal inspection, full ROM. Absent: tenderness, swelling Foot/Toe exam: Present: normal inspection, full ROM. Absent: tenderness - Back Exam Back exam: Present: normal inspection - Neurological Exam Neurological exam: Present: alert, oriented X3 - Psychiatric Psychiatric exam: Present: normal affect, normal mood - Skin Skin exam: Present: warm, dry, intact, normal color. Absent: rash ED Course Vital Signs 04/28/20 04/28/20 04/28/20 09:57 12:15 13:42 Temperature 97.9 F Pulse Rate 105 H Respiratory 18 20 18 Rate Blood Pressure 121/87 O2 Sat by Pulse 96 Oximetry ED Medical Decision Making - Radiology Data Radiology results: report reviewed [facility] [address] [place] [address] XRay Report Signed Patient: SALLY WATSON MR#: [id number] : 1940 Acct:[id number] Age/Sex: 79 / M ADM Date: 04/28/20 Loc: ED Attending Dr: Ordering Physician: PATITO HART Date of Service: 04/28/20 Procedure(s): XR knee BILAT 3V Accession Number(s): [id number] cc: PATITO HART Fluoro Time In Minutes: XR knee BILAT 3V INDICATION / CLINICAL INFORMATION: Fall directly on knees with pain decreased rom. COMPARISON: 01/05/2020 left knee radiograph FINDINGS: No acute fracture. Normal alignment. Moderate tricompartmental osteoarthritis. No destructive osseous lesion or suspicious periosteal reaction. 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 Impression: 1.No acute fracture. 2. Right synovial chondromatosis. Signer Name: Dave Langston MD Signed: 04/28/2020 12:40 PM Workstation Name: [id number] Transcribed By: CS Dictated By: Dave Langston MD Electronically Authenticated By: Dave Langston MD Signed Date/Time: 04/28/20 1240 DD/ 1238 TD/TT: - Medical Decision Making 79-year old -[place] male with a history of arthritis of the knees is brought in by EMS for bilateral knee pain stating that he had fallen off a ladder 3 steps last night. Patient reports that the pain is worse on the right and not able to fully extend his knees. Patient states his pain is a 9 out of 10. Patient does have a past medical history of diabetes and hypertension with arthritis. Patient denies any neck pain head pain back pain. Bilateral knee x-ray has been ordered Toradol 30 mg for pain management. X-rays show no acute findings does show synovial chondromatosis. This is a benign disease that affects the thin lining of the synovial joint. Not considered cancerous. Does limit to range of motion and can cause pain. I will refer patient to orthopedic provider prescription for Mobic. Critical care attestation.: If time is entered above; I have spent that time in minutes in the direct care of this critically ill patient, excluding procedure time. ED Disposition Clinical Impression: Chondromatosis of synovium of knee joint, Fall (on) (from) other stairs and steps, initial encounter, Knee pain, bilateral Disposition: DC- TO HOME OR SELFCARE Is pt being admited?: No Does the pt Need Aspirin: No Condition: Stable Instructions: Arthralgia (ED) Additional Instructions: X-ray is negative for any acute abnormalities no fractures or dislocations. It does show that you have synovial chroma ptosis which is a rare disease comes from the thin lining of the synovial joint. Pain medication I am giving you a small bit take once a day. I am referring her to orthopedic provider. Prescriptions: Meloxicam [Mobic] 7.5 mg PO QDAY #30 tablet Referrals: LUCY PRYOR MD [Staff Physician] - 3-5 Days COSME HERRERA MD [Staff Physician] - 3-5 Days
--- NOTE | 2020-04-28 12:45 | XRay Report ---
XR knee BILAT 3V INDICATION / CLINICAL INFORMATION: Fall directly on knees with pain decreased rom. COMPARISON: 01/05/2020 left knee radiograph FINDINGS: No acute fracture. Normal alignment. Moderate tricompartmental osteoarthritis. No destructive osseo us lesion or suspicious periosteal reaction. 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 Impression: 1.No acute fracture. 2. Right synovial chondromatosis. Signer Name: Dave Langston MD Signed: 04/28/2020 12:40 PM Workstation Name: [id number]
[2020-04-28] MEDS ORDERED: ACETAMINOPHEN 500 MG TAB PO ONE (13:11)
== END 2020-04-28 14:11 | disposition home or self-care (01) ==
LOC: ED 09:39
DX: D48.0 Neoplasm of uncertain behavior of bone and articular cartilage (principal); I10 Essential (primary) hypertension; E11.9 Type 2 diabetes mellitus without complications; M19.90 Unspecified osteoarthritis, unspecified site; J45.909 Unspecified asthma, uncomplicated; W10.9XXA Fall (on) (from) unspecified stairs and steps, initial encounter; Y93.89 Activity, other specified; Y92.89 Other specified places as the place of occurrence of the external cause; Y99.8 Other external cause status
CPT/HCPCS: 73562; 96372; 99284; J1885